=== PATIENT | male | born 1960 | race Caucasian/White ===

== ENCOUNTER → 2017-05-15 | Outpatient (CLI) | payer OTHER ==
[~2017-05-15] MED LIST: AMLODIPINE BESY1 TAB PO; DICLOFENAC SOD75 MG PO; FLEXERIL10 MG PO; GLUCOPHAGE1000 MG PO; LIPITOR10 MG PO; MOTRIN600 MG PO; OMEPRAZOLE40 MG PO; VICODIN 5/500 505 MG PO; VITAMIN D5000 UNI1 PO
[2017-05-15 11:52] LABS: HEMOGLOBIN A1c 7.4 % (4.8-5.6)
[2017-05-15 12:12] LABS: ALBUMIN 3.4 gm/dl (3.1-4.5); ALKALINE PHOSPHATASE 94 U/L (45-117); BILIRUBIN, TOTAL 0.6 mg/dl (0.2-1.0); BUN 8 mg/dl (7-24); CARBON DIOXIDE 29 mmol/L (21-32); CHLORIDE 100 mmol/L (98-107); CHOLESTEROL 164 mg/dL (<200); CPK 73 U/L (39-308); EST GLOM FILT AFRICAN AMERICAN > 60 ml/min; GLUCOSE 163 mg/dL (65-99); HDL CHOLESTEROL 31 mg/dl (40-60); LDL CHOLESTEROL 87 mg/dL (9-159); POTASSIUM 4.3 mmol/L (3.5-5.1); SGOT/AST 14 IU/L (3-35); SGPT/ALT 25 U/L (12-78); SODIUM 137 mmol/L (136-145); TOTAL PROTEIN 7.9 gm/dL (6.4-8.2); TRIGLYCERIDES 229 mg/dl (<150); VLDL CHOLESTEROL 46 mg/dL (6-40)
[2017-05-16 08:12] LABS: RHEUMATOID ARTHRITIS FACTOR <10.0 IU/mL (0.0-13.9)
[2017-05-16 15:10] LABS: LYME AB/TOTAL IMMUNOGLOBULINS <0.91 ISR (0.00-0.90)
== END | disposition home or self-care (01) ==
LOC: LAB 10:38
PROVIDERS: Family Medicine
DX: Z12.5 Encounter for screening for malignant neoplasm of prostate (principal); I25.10 Atherosclerotic heart disease of native coronary artery without angina pectoris; E11.9 Type 2 diabetes mellitus without complications; E55.9 Vitamin D deficiency, unspecified; M79.1 Myalgia; M54.9 Dorsalgia, unspecified; E78.2 Mixed hyperlipidemia; M19.90 Unspecified osteoarthritis, unspecified site

== ENCOUNTER → 2017-08-15 | Outpatient (CLI) | payer OTHER ==
[2017-08-15 11:56] LABS: HEMATOCRIT 45.6 % (42.0-52.0); MEAN CELL VOLUME 95.6 fl (80.0-94.0); MEAN CORPUSCULAR HGB 31.4 pg (27.0-31.0); MEAN CORPUSCULAR HGB CONC 32.9 g/dl (33.0-37.0); MEAN PLATELET VOLUME 9.1 fl (9.6-12.3); RED BLOOD COUNT 4.77 10*6/uL (4.50-5.90); RED CELL DISTRI WIDTH 13.5 % (0-14.5); WHITE BLOOD COUNT 12.6 10*3/uL (4.8-10.8)
[2017-08-15 12:24] LABS: ALBUMIN 3.5 gm/dl (3.1-4.5); ALKALINE PHOSPHATASE 103 U/L (45-117); BUN 11 mg/dl (7-24); CHLORIDE 101 mmol/L (98-107); CHOLESTEROL 173 mg/dL (<200); CPK 84 U/L (39-308); CREATININE 0.92 mg/dL (0.70-1.30); HDL CHOLESTEROL 31 mg/dl (40-60); LDL CHOLESTEROL 78 mg/dL (9-159); POTASSIUM 4.9 mmol/L (3.5-5.1); SGOT/AST 13 IU/L (3-35); SGPT/ALT 23 U/L (12-78); SODIUM 137 mmol/L (136-145); TOTAL PROTEIN 8.2 gm/dL (6.4-8.2); TRIGLYCERIDES 318 mg/dl (<150); VLDL CHOLESTEROL 64 mg/dL (6-40)
== END | disposition home or self-care (01) ==
LOC: LAB 11:42
PROVIDERS: Family Medicine
DX: E78.00 Pure hypercholesterolemia, unspecified (principal); I10 Essential (primary) hypertension; I25.10 Atherosclerotic heart disease of native coronary artery without angina pectoris; E11.9 Type 2 diabetes mellitus without complications

== ENCOUNTER → 2017-11-16 | Outpatient (CLI) | payer OTHER | END | disposition home or self-care (01) | LOC: RAD 10:11 | DX: E11.9 Type 2 diabetes mellitus without complications (principal); I10 Essential (primary) hypertension; R06.02 Shortness of breath; R05 Cough; R09.89 Other specified symptoms and signs involving the circulatory and respiratory systems; Z87.891 Personal history of nicotine dependence ==

== ENCOUNTER → 2018-04-11 | Outpatient (CLI) | payer OTHER ==
[2018-04-11 17:27] LABS: ALBUMIN 3.6 gm/dl (3.1-4.5); ALKALINE PHOSPHATASE 97 U/L (45-117); BUN 11 mg/dl (7-24); CHLORIDE 102 mmol/L (98-107); CHOLESTEROL 153 mg/dL (<200); CPK 97 U/L (39-308); CREATININE 0.89 mg/dL (0.70-1.30); HDL CHOLESTEROL 30 mg/dl (40-60); LDL CHOLESTEROL 76 mg/dL (9-159); POTASSIUM 4.2 mmol/L (3.5-5.1); SGOT/AST 9 IU/L (3-35); SGPT/ALT 24 U/L (12-78); SODIUM 138 mmol/L (136-145); TOTAL PROTEIN 8.2 gm/dL (6.4-8.2); TRIGLYCERIDES 236 mg/dl (<150); VLDL CHOLESTEROL 47 mg/dL (6-40)
== END | disposition home or self-care (01) ==
LOC: LAB 15:22
PROVIDERS: Family Medicine
DX: Z12.5 Encounter for screening for malignant neoplasm of prostate (principal); E78.00 Pure hypercholesterolemia, unspecified; I10 Essential (primary) hypertension; E11.9 Type 2 diabetes mellitus without complications

== ENCOUNTER 2018-10-25 18:17 | Inpatient (IN) | payer MEDICARE, MEDICAID ==
[~2018-10-25] VITALS: Ht 175.3 cm; Wt 114.0 kg
--- NOTE | ~2018-10-25 | PR ---
[place], [place] PROGRESS NOTE NAME: VU CONCEPCION UNIT #: [id number] ROOM: 517 DOCTOR: DESTINY VALLEJO MD,MARKY BIRTHDATE: [birth year] DOS: 10/31/2018 SUBJECTIVE: The patient noted comfortable at this time, resting on the bed without any acute distress. He has no reported symptoms of chest pain. Ambulating with the use of oxygen, was assessed yesterday requiring 4 liters of oxygen supplementation, continue use with sitting and ambulation. OBJECTIVE: VITAL SIGNS: Normal temperature, respiratory rate 20, heart rate 86, blood pressure 151/84. The pulse oxygen saturation on 4 liters nasal cannula 94% saturation. HEENT: Chronic moderate obesity. NECK: Supple. CARDIOVASCULAR: S1, S2 audible. LUNGS: The patient was noted without any wheeze or crackles, [id number] diminished breath sounds bilaterally. ABDOMEN: Soft, nontender. EXTREMITIES: Chronic obesity. IMPRESSION: The patient with resolving acute on chronic severe hypercapnic and hypoxic respiratory failure, exacerbation of chronic obstructive pulmonary disease. PLAN OF TREATMENT: No changes in the plan would be recommended, except discharge in the home setting with use of oxygen, bronchodilator, tapering prednisone and other medications. Outpatient assessment for the comprehensive assessment of COPD, respiratory failure and suspected obstructive sleep apnea disorder. MARKY DIXON MD CM:PNTRANS [id number] MARKY VALLEJO MD 10/31/18 1600 interface
--- NOTE | ~2018-10-25 | CON ---
[place], [place] REPORT OF CONSULTATION NAME: VU CONCEPCION UNIT #: [id number] ROOM: [facility] DOCTOR: MARKY RUSSELL MD BIRTHDATE: [birth year] DOS: 10/27/2018 PULMONARY CONSULTATION, EVALUATION, AND MANAGEMENT CONSULTATION REQUESTED BY: Hospitalist services. REASON FOR CONSULTATION: For assessment of current respiratory failure. HISTORY OF PRESENT ILLNESS: This is a 58-year-old white male admitted to the hospital by hospitalist service on the date of 10/25/2018. The patient's primary care attending is Dr. Joel Begum. He has been assessed in the Emergency Room and the patient presented to the Emergency Room with ongoing symptoms of shortness of breath for 3 days. He has been noted with increased coughing with sputum expectoration described greenish in color, intermittently as well. The symptoms of shortness breath regarding significantly worse as well. He has been reported with symptoms of wheezing. The patient denies any symptoms of chest pain or hemoptysis. The history of patient is noted somewhat limited because of current use of the BiPAP. The patient noted increased lethargy. The patient was sleeping, which has been noted this morning. Arterial blood gas was completed. I was asked for consultation. The patient has been started BiPAP and noted with gradual improvement and wakefulness in the last 3 hours with the use of the BiPAP setting of 18/10. REVIEW OF SYSTEMS: CONSTITUTIONAL SYMPTOMS: Fatigue and tiredness noted with subjective symptoms of fever. The patient had chills described by the patient. EYES: Denied any burning, redness, or tenderness. EARS, NOSE, THROAT SYMPTOMS: Denies sore throat, hoarseness, otalgia, postnasal drainage or epistaxis. CARDIOVASCULAR: Denies any anginal pain, edema, or pain in lower extremity. GASTROINTESTINAL: Denies dysphagia, nausea, vomiting, diarrhea, abdominal pain, hematemesis, melena, or hematochezia. GENITOURINARY: No dysuria, suprapubic pain, or hematuria. MUSCULOSKELETAL: No acute joint pain, redness, or tenderness. SKIN: Denies lesions or rashes. CENTRAL NERVOUS SYSTEM: No dizziness, headache, diplopia or syncopal episode. Remaining systems were reviewed, they were noted all negative. PAST MEDICAL HISTORY: 1. Coronary artery disease. 2. Chronic heavy nicotine dependence. There was no formal diagnosis of COPD or pulmonary diseases have been reported prior to the current hospitalization. 3. History of hypercholesterolemia. 4. History of type 2 diabetes mellitus. 5. History of gastroesophageal reflux. PAST SURGICAL HISTORY: Noted as cardiac catheterization. SOCIAL HISTORY: The patient is and lives at home. He has been noted [place], [place] REPORT OF CONSULTATION NAME: VU CONCEPCION UNIT #: [id number] ROOM: [facility] DOCTOR: MARKY RUSSELL MD BIRTHDATE: [birth year] tobacco use, a pack of cigarettes per day, active use for 40 years or more. FAMILY HISTORY: Both parents from complication related to myocardial infarction. HOME MEDICATIONS: Listed use of aspirin, atorvastatin, vitamin D, Plavix, glipizide, metformin, metoprolol succinate, omeprazole and Protonix. DRUG ALLERGIES: The patient noted without any known drug allergies. PHYSICAL EXAMINATION: GENERAL: This is a 58-year-old white male currently noted BiPAP patient. Follows vocal commands, opening his eyes appropriately. Answering questions. Height of 5 feet 9 inches, weight of 242 pounds, BMI 35.7. VITAL SIGNS: Normal temperature to 99.6 degree Fahrenheit, respiratory rate 22-30, heart rate of 121-103 with sinus tachycardia, blood pressure 120/70-122/68. The pulse oxygen saturation recorded as 85% on room air on 5-liter nasal cannula, 93% with the BiPAP 50% oxygen, 95% saturation. HEENT: Head was atraumatic. Eyes nonicterus. NECK: Supple. CARDIOVASCULAR: S1, S2 is audible. LUNGS: The patient noted to have diffuse expiratory wheezing with decreased breath sounds bilaterally. ABDOMEN: Soft, nontender, bowel sounds present. EXTREMITIES: The patient was noted without acute edema. MUSCULOSKELETAL: Noted without any acute deformities. SKIN: No visible skin lesions or rashes. CENTRAL NERVOUS SYSTEM: Cranial nerves 2-12 intact. LABORATORY DATA: CBC on admission 10/25/2018, WBC count 14.6. Hemoglobin, hematocrit and platelet count were normal. CBC that was done yesterday, WBC count as 16.3, hemoglobin remains normal. Platelet count remains normal. CBC of this morning: WBC count was recorded at 15.3, hemoglobin 12.7, platelet count remains normal. The CMP on 10/25/2018, normal BUN and creatinine, CO2 33. CMP that was done this morning, glucose 283, BUN and creatinine was normal, CO2 of 33. Sputum Gram stain of yesterday, moderate white blood cell, few gram-positive cocci in pairs, normal florin. Preliminary chest x-ray that was done this morning was noted without any acute pulmonary infiltration, mild pulmonary venous congestion marking was noted. Influenza A and B, nasal washing antigen negative on admission. CT of the chest that was done 10/25/2018, does not show any evidence of pulmonary embolism. The patient was noted with mild lymphadenopathy in the subcarinal area with a short dimension side 1.2 cm as well. There was no pulmonary infiltration. The arterial blood gas on 8-liter nasal cannula 10/27/2018, pH of 7.14, pCO2 94, pO2 of 82. Arterial blood gas with BiPAP setting of 18/10. After 3 hours, pH of 7.22, pCO2 of 78, pO2 70.3. IMPRESSION: 1. The patient who has been currently noted with acute hypercapnic and hypoxic respiratory failure secondary to new onset of chronic obstructive pulmonary disease with acute bronchitis, leukocytosis, acute bacterial bronchitis. [place], [place] REPORT OF CONSULTATION NAME: VU CONCEPCION UNIT #: [id number] ROOM: [facility] DOCTOR: DESTINY VALLEJO MD,[facility] BIRTHDATE: [birth year] 2. Type 2 diabetes mellitus, uncontrolled hyperglycemia. 3. Change in mental status secondary to hypercarbia seem to be gradually improving. 4. Chronic nicotine abuse. 5. Nonspecific lymphadenopathy in the mediastinum and subcarinal area at this time will be further monitored, may be related to chronic obstructive pulmonary disease and tobacco use. 6. Metabolic alkalosis secondary to chronic hypercarbia is very likely. PLAN OF MANAGEMENT: The patient will continue current use of BiPAP. He has been showing improvement in ventilation with current use of the BiPAP as well as mental status. Corticosteroids to continue to manage hyperglycemia, sliding insulin coverage. Continue use of the bronchodilator. DVT prophylaxis. Monitor cultures of the sputum. No change in antibiotics. Further change in treatment will be done based on the progression of the illness. Nicotine replacement patch to overcome nicotine withdrawal as well. Other additional treatment changes will be made based on progression of the illness. Thanks for allowing me to participate in the care of this patient. MARKY DIXON MD CM:CONSTR:REPORT OF CONSULTATION 1743 10/28/18 0549 interface
--- NOTE | ~2018-10-25 | PR ---
[place], [place] PROGRESS NOTE [id number] UNIT #: [id number] ROOM: [facility] DOCTOR: DESTINY VALLEJO MD,MARKY BIRTHDATE: [birth year] DOS: 10/28/2018 SUBJECTIVE: The patient was noted comfortable at this time, sitting on the chair this morning of assessment. He has shown continued further improvement in the respiratory status use the BiPAP most of the time as ordered. He has not been noted with symptoms of chest pain. The oxygen supplementation decreased currently 6 liter high flow nasal cannula use of oxygen. The patient noted awake and alert, cooperative in examination, fully awake, alert, and oriented. Family members were present in the room. The edema of the lower extremity noted mild at this time. The patient given one dose of IV Lasix ordered by the primary care attending this morning. The patient denies symptoms of nausea, vomiting, diarrhea, abdominal pain, hematemesis, melena, or hematochezia. Remaining systems were reviewed. They were noted all negative. OBJECTIVE: VITAL SIGNS: Normal temperature, respiratory rate of 18, heart rate 78, blood pressure 118/72-116/74. Intake for the patient of 1690, fluid balance -385 mL. Pulse oxygen saturation on the 60s high flow nasal cannula 90% saturation recorded. HEENT: Head was atraumatic. Moderate obesity. NECK: Supple. CARDIOVASCULAR: S1, S2 audible. LUNGS: Crackles noted in the lung bases, scattered wheezing. ABDOMEN: Soft and nontender. Moderate obesity, bowel sounds present. EXTREMITIES: Trace edema. MUSCULOSKELETAL: Without any acute deformities. CENTRAL NERVOUS SYSTEM: Cranial nerves 2-12 intact. VISIBLE SKIN: No lesions or rashes. LABORATORY DATA: The patient's CBC today: WBC count 17.1, hemoglobin 11.9, hematocrit 39.7 with normal platelet count. The culture of the sputum final normal florin. Blood culture, no bacterial growth on 10/25/2018. BMP of this morning, glucose 219. Normal BUN and creatinine, CO2 37. Arterial blood gas this morning, pH of 7.36, pCO2 of 57, pO2 of 71 on 8 liters high flow nasal cannula of oxygen use. IMPRESSION: 1. The patient has been currently noted with significant improvement, resolution of acute hypercapnic hypoxic respiratory failure. 2. Acute exacerbation of chronic obstructive pulmonary disease. 3. Possibility of some superimposed congestive heart failure would be considered. 4. Type 2 diabetes mellitus, uncontrolled hyperglycemia. 5. Improving mental status with improvement in hypercarbia, chronic metabolic alkalosis as well. Nonspecific mediastinal lymphadenopathy of unknown significance. History of chronic heavy nicotine abuse. PLAN OF TREATMENT: Continue nicotine replacement patches, bronchodilators, oxygen supplementation, diuretic therapy for the patient as tolerated. Decrease [place], [place] PROGRESS NOTE NAME: VU CONCEPCION UNIT #: [id number] ROOM: [facility] DOCTOR: MARKY RUSSELL MD BIRTHDATE: [birth year] the Solu-Medrol dose to 60 mg q.8h., 60 mg b.i.d. dosing at this time. Use of the BiPAP intermittent during the day for this patient 2 hours on and 2 hours off and continuous at nighttime. Repeat another chest x-ray in the morning. Monitoring and management of hyperglycemia. Other supportive therapy, plan of management care for the patient to be continued based on progression of the illness. DVT prophylaxis. Other supportive plan of management and care and therapies. Assessment and management has been discussed with the patient and family members of the patient in detail in the room. Past family, social, surgical history, all of the others review from yesterday and remains unchanged. MARKY DIXON MD CM:PNTRANS [id number] MARKY VALLEJO MD 06/06/19 0849 interface
--- NOTE | ~2018-10-25 | PR ---
[place], [place] PROGRESS NOTE NAME: VU CONCEPCION UNIT #: [id number] ROOM: 517 DOCTOR: MARKY RUSSELL MD BIRTHDATE: [birth year] DOS: 10/30/2018 SUBJECTIVE: The patient has been noted comfortable, continued to show reduction and improvement in the respiratory complaints. He has ambulated in his room as well reduction in shortness of breath. No symptoms of chest pain. The patient denies symptoms of fever or chills. Denies symptoms of hemoptysis. Shortness of breath, the other symptoms the patient have been slowly subsiding. Currently using oxygen supplementation 4 liters nasal cannula this morning of assessment. OBJECTIVE: VITAL SIGNS: Normal temperature, respiratory rate 20, heart rate of 98, blood pressure 150/79. Pulse oxygen saturation on BiPAP 92% on 4 liters, 92% saturation at rest. HEENT: Showed no new change. NECK: Supple. CARDIOVASCULAR: S1, S2 audible. LUNGS: Noted with moderate decreased breaths in the lungs bilaterally. There were no crackles. ABDOMEN: Soft, nontender. EXTREMITIES: Shows resolving edema of the lower extremities. LABORATORY DATA: Chest x-ray yesterday was noted without any acute pulmonary infiltration. Urine legionella antigen negative. IMPRESSION: Progressive and gradual improvement noted in the acute hypercapnic hypoxic respiratory failure with exacerbation of chronic obstructive, stable metabolic alkalosis. PLAN OF MANAGEMENT: Ambulation with the need of oxygen. Continue corticosteroids, bronchodilators. It depends on the requirement of the oxygen supplementation and decision about discharge could be made. Continue in the meantime with the plan of therapy, patient care plan of treatment and therapies. [place], [place] PROGRESS NOTE NAME: VU CONCEPCION UNIT #: [id number] ROOM: 517 DOCTOR: MARKY RUSSELL MD BIRTHDATE: [birth year] MARKY DIXON MD CM:PNTRANS [id number] MARKY VALLEJO MD 06/06/19 0828 interface
--- NOTE | ~2018-10-25 | EKG ---
[place], [place] ELECTROCARDIOGRAM REPORT NAME: VU CONCEPCION UNIT #: [id number] ROOM: [facility] DOCTOR: TEODORO DRAFT REPORT BIRTHDATE: [birth year] [facility] Test Date: 2018-10-25 Test Time: 19:03:27 Pat Name: VU CONCEPCION Department: Room: [facility] Gender: M Percussion Instrument Tuner: Jacinta Martinez : 1960 Requested By: JAMESON CHI Order Number: [id number] Reading MD: Mary Lou Pizarro MD Measurements Intervals [place] Rate: 113 P: 60 VA: 154 QRS: 80 QRSD: 82 T: 59 QT: 305 QTc: 419 Interpretive Statements Sinus tachycardia Low voltage, extremity leads Electronically Signed On 10-26-2018 10:50:27 PST by Mary Lou Pizarro MD CM:EKGRPT:ELECTROCARDIOGRAM REPORT 1050 JAMESON REECE DRAFT REPORT JAMESON CHI DO
--- NOTE | ~2018-10-25 | PR ---
[place], [place] PROGRESS NOTE NAME: VU CONCEPCION UNIT #: [id number] ROOM: [facility] DOCTOR: DSETINY VALLEJO MD,MARKY BIRTHDATE: [birth year] DOS: 10/29/2018 SUBJECTIVE: The patient was noted comfortable at this time, resting on the bed without any acute distress this morning. The patient has been transferred to telemetry floor. He had not ambulating for the patient outside the room, but does ambulate in his room. Shortness of breath symptoms have been gradually subsiding. There were no symptoms of chest pain, fever or chills. OBJECTIVE: VITAL SIGNS: Normal temperature, respiratory rate 20, heart rate 83, and blood pressure 130/74. Pulse oxygen saturation recorded as 94% on 7 liters nasal cannula. HEENT: Head was atraumatic. Eyes nonicterus. NECK: Supple. CARDIOVASCULAR: S1, S2 is audible. LUNGS: The patient was noted with moderate reduction of the breath sounds bilaterally. There were no crackles, rhonchi or wheezing. ABDOMEN: Soft and nontender. Bowel sounds present. EXTREMITIES: Shows minimal edema. LABORATORY DATA: The patient's CBC this morning, WBC count 13.0, hemoglobin 12.2, and platelet count was normal. CMP this morning, normal BUN and creatinine. Glucose is elevated as 247. The CO2 patient was noted as 39. The chest x-ray two-view, which was done this morning reviewed from the PACS images does not show any acute cardiopulmonary disease including congestive heart failure, hyperinflation changes of chronic obstructive pulmonary disease were present. IMPRESSION: 1. The patient with gradual resolution of the severe acute hypercapnic hypoxic respiratory failure, still requiring significant amount of oxygen. 2. Hyperglycemia related to corticosteroids. 3. Chronic obesity as well. PLAN OF MANAGEMENT: Decrease the Solu-Medrol further to 40 mg b.i.d. dosing. Ambulation of the patient would be encouraged with the use of the portable oxygen to assess his oral improvement in the debility to help with the discharge planning. Continue use of the BiPAP as well. Other additional treatment changes continue to be made based on progression of the illness. Supportive care, other therapy, plan of management and care plan. [place], [place] PROGRESS NOTE NAME: VU CONCEPCION UNIT #: [id number] ROOM: [facility] DOCTOR: MARKY RUSSELL MD BIRTHDATE: [birth year] MARKY DIXON MD CM:PNTRANS 1529 MARKY VALLEJO MD 10/29/18 1757 interface
[2018-10-25 18:36] VITALS: BP 140/83
--- NOTE | 2018-10-25 19:07 | NUR ---
NURSE TO NURSE REPORT GIVEN TO THIS RN.
[2018-10-25 19:09] LABS: BASO # 0.1 10*3/uL (0.0-0.1); BASO % 0.3 % (0.0-1.0); EOS # 0.4 10*3/uL (0.0-0.4); EOS % 2.7 % (1.0-4.0); HEMOGLOBIN 14.5 g/dl (14.0-18.0); LYMPH # 1.2 10*3/uL (1.3-4.4); LYMPH % 8.2 % (27.0-41.0); MEAN CELL VOLUME 97.2 fl (80.0-94.0); MEAN CORPUSCULAR HGB 31.3 pg (27.0-31.0); MEAN CORPUSCULAR HGB CONC 32.2 g/dl (33.0-37.0); MEAN PLATELET VOLUME 9.4 fl (9.6-12.3); MONO % 6.5 % (3.0-9.0); NEUT # 11.9 10*3/uL (2.3-7.9); NEUT % 81.9 % (47.0-73.0); PLATELET COUNT AUTOMATED 207 10*3/uL (130-400); RED BLOOD COUNT 4.63 10*6/uL (4.50-5.90); RED CELL DISTRI WIDTH 14.5 % (0-14.5); WHITE BLOOD COUNT 14.6 10*3/uL (4.8-10.8)
[2018-10-25 19:20] LABS: ACT PARTIAL THROMBO TIME 24.8 SECONDS (20.8-31.5); INTERNATIONAL NORM RATIO 0.9 (2.0-3.5)
[2018-10-25] MEDS ORDERED: PANTOPRAZOLE SO40 MG PO (19:21)
[2018-10-25] MEDS ORDERED: METOPROLOL SUCC50 M1 PO (19:21)
[2018-10-25] MEDS ORDERED: GLIPIZIDE10 M1 PO (19:22)
[2018-10-25] MEDS ORDERED: CLOPIDOGREL75 MG PO (19:22)
[2018-10-25 19:23] VITALS: BP 149/91
[2018-10-25 19:24] LABS: ALBUMIN 3.6 gm/dl (3.1-4.5); ALKALINE PHOSPHATASE 104 U/L (45-117); BUN 14 mg/dl (7-24); CHLORIDE 98 mmol/L (98-107); CREATININE 0.99 mg/dL (0.70-1.30); LIPASE 210 U/L (73-393); POTASSIUM 4.4 mmol/L (3.5-5.1); SGOT/AST 25 IU/L (3-35); SGPT/ALT 36 U/L (12-78); SODIUM 138 mmol/L (136-145)
[2018-10-25 19:27] LABS: TROPONIN I < 0.015 ng/ml (<0.045)
--- NOTE | 2018-10-25 19:55 | NUR ---
NURSE TO NURSE REPORT GIVEN TO RN LUCIEN IN [facility]U.
[2018-10-25 20:00] VITALS: BP 139/70
--- NOTE | 2018-10-25 20:00 | NUR ---
A 58, admitted to ICCU, under the services of CALEB Aguiar DO with a diagnosis of SEPSIS, ACUTE RESP. FAILURE, PNEUMONITIS. Chief complaint is SHORTNESS OF BREATH AND RIGHT RIB STABBING PAIN. Patient arrived via stretcher from ER. Monitor applied. Initial assessment completed. Vital signs taken and recorded. CALEB AGUIAR DO notified of admission to the unit. Orders received. See assessment for past medical history, medications and allergies. Patient and/or family oriented to unit. [facility] visitation policy reviewed. Clothing/patient valuable form completed. LUCIEN CORRAL
[2018-10-25] MEDS ORDERED: ASPIRIN CHEWABL81 MG PO (20:31)
[2018-10-25 20:41] LABS: ABG BASE EXCESS 2.5 mmol/L (-2.0-2.0); ABG HCO3 30.4 mmol/l (22-26); ABG O2 SATURATION 95.1 % (95-97); ARTERIAL BLOOD GAS PCO2 63.7 mmHg (35-45); ARTERIAL BLOOD GAS PH 7.299 (7.35-7.45); ARTERIAL BLOOD GAS PO2 76.8 mmHg (80-90)
--- NOTE | 2018-10-25 22:05 | NUR ---
DR. MCALLISTER NOTIFIED OF CTA RESULTS, NO FURTHER ORDERS.
--- NOTE | 2018-10-25 22:21 | NUR ---
PT. GIVEN MORPHINE AT 2201 FOR COMPLAINTS OF RIGHT RIB PAIN, PT. STATED MORPHINE EFFECTIVE FOR PAIN, SLEEPING INTERMITTENTLY.
--- NOTE | 2018-10-25 22:21 | NUR ---
DR. MEADOWS NOTIFIED OF DR. DIXON OUT OF TOWN UNTIL AM. WILL CALL IN AM FOR CONSULT. LUCIEN CORRAL RN
[2018-10-26] VITALS (9 sets, daily range): BP systolic 83–122; BP diastolic 36–76
--- NOTE | 2018-10-26 03:16 | NUR ---
PT ACCIDENTALLY PULLED OUT IV IN RH, BRIGHT RED BLOOD EVERYWHERE. BED LINEN CHANGED, FLOOR CLEANED AND PT'S GOWN CHANGED. LUCIEN CORRAL RN
--- NOTE | 2018-10-26 04:58 | NUR ---
PT. GIVEN NORCO AT 0449 ORDERED FOR COMPLAINTS OF ARTHRITIC PAIN AND RIGHT RIB PAIN WITH COUGH. LUCIEN CORRAL RN
[2018-10-26 05:13] LABS: HEMATOCRIT 42.2 % (42.0-52.0); HEMOGLOBIN 13.3 g/dl (14.0-18.0); MEAN CELL VOLUME 99.1 fl (80.0-94.0); MEAN CORPUSCULAR HGB 31.2 pg (27.0-31.0); MEAN CORPUSCULAR HGB CONC 31.5 g/dl (33.0-37.0); MEAN PLATELET VOLUME 9.5 fl (9.6-12.3); PLATELET COUNT AUTOMATED 189 10*3/uL (130-400); RED BLOOD COUNT 4.26 10*6/uL (4.50-5.90); RED CELL DISTRI WIDTH 14.5 % (0-14.5); WHITE BLOOD COUNT 16.3 10*3/uL (4.8-10.8)
[2018-10-26 05:35] LABS: PLATELET SUFFICIENCY NORMAL (NORMAL); POLYCHROMASIA SLIGHT; TOTAL CELLS COUNTED 100 #CELLS
[2018-10-26 05:42] LABS: BUN 15 mg/dl (7-24); CHLORIDE 104 mmol/L (98-107); CHOLESTEROL 135 mg/dL (<200); PHOSPHOROUS 2.8 mg/dL (2.5-4.9); SGOT/AST 46 IU/L (3-35); SGPT/ALT 52 U/L (12-78); SODIUM 141 mmol/L (136-145); TRIGLYCERIDES 93 mg/dl (<150); VLDL CHOLESTEROL 19 mg/dL (6-40)
[2018-10-26 05:49] LABS: ALKALINE PHOSPHATASE 89 U/L (45-117); FREE T4 0.92 ng/dl (0.76-1.46); HDL CHOLESTEROL 36 mg/dl (40-60); LDL CHOLESTEROL 80 mg/dL (9-159); THYROID STIM HORMONE (HS) 0.681 uIU/ml (0.358-4.75); TOTAL PROTEIN 7.2 gm/dL (6.4-8.2)
[2018-10-26 05:54] LABS: POTASSIUM 5.5 mmol/L (3.5-5.1)
[2018-10-26 06:28] LABS: ACT PARTIAL THROMBO TIME 28.2 SECONDS (20.8-31.5)
--- NOTE | 2018-10-26 06:38 | NUR ---
DR. DIXON NOTIFIED OF CONSULT.
--- NOTE | 2018-10-26 07:38 | NUR ---
pt was instructed on flutter. pt tolerated well, pt can do on his own
[2018-10-26 07:59] LABS: VITAMIN D, 25-HYDROXY 13.5 ng/mL (30-100)
--- NOTE | 2018-10-26 08:37 | NUR ---
DR GENARO CHI IN [facility] AND MADE AWARE OF PT'S HYPOTENSION AND THAT I HELD TOPROL THIS AM.
--- NOTE | 2018-10-26 09:40 | NUR ---
PT MEDICATED WITH NORCO AT HIS REQUEST FOR C/O RIB CAGE AREA PAIN WITH COUGHING.
--- NOTE | 2018-10-26 11:50 | NUR ---
Research Compliance Specialist in to talk to patient. Patient states lives at HOME with . There are SOME steps in the home. Physician: STEVIE Pharmacy: [facility] Home health services: NONE Patient's level of ADLs: INDEPENDENT Patient has working utilities: YES DME: NONE Follow-up physician's appointment after d/c: WILL BE MADE BY HOSPITALIST NURSE DIRECTOR ON DISCHARGE Does patient want to access PORTAL?: NO Discharge plan PT STATES HE LIVES AT HOME AND IS INDEPENDENT IN CARE. STATES HE HAS NO NEEDS AT HOME AT THIS TIME. CAN BE DISCHARGED TO HOME WHEN MEDICALLY STABLE. WILL CONTINUE TO FOLLOW.. ALEC GUSTAFSON
--- NOTE | 2018-10-26 20:04 | NUR ---
PT. RESTING IN BED, SLEEPING INTERMITTENTLY. LUNGS HAVE I&E WHEEZES BILAT, PULSE OX 91% ON 6L NC. ABDOMEN SOFTLY DISTENDED AND NORMO. NO PERIPHERAL EDEMA NOTED. KNEE HIGH IESHA HOSE BILAT. PT. DENIES PAIN OR DISCOMFORT AT PRESENT, NORCO GIVEN PRIOR TO SHIFT EFFECTIVE FOR RIGHT RIB PAIN. LUCIEN CORRAL RN
[2018-10-27] VITALS: BP 118/58
--- NOTE | 2018-10-27 00:18 | NUR ---
NORCO GIVEN GIVEN AT 2119 ORDERED FOR COMPLAINTS OF RIGHT RIB PAIN. PT. SLEEPING INTERMITTENTLY, NORCO EFFECTIVE.
--- NOTE | 2018-10-27 03:17 | NUR ---
pt. given norco and restoril as ordered for complaints of inability to sleep and rib pain. tigre sr rn
--- NOTE | 2018-10-27 03:57 | NUR ---
PT. SLEEPING, NORCO AND RESTORIL EFFECTIVE. LUCINE CORRAL RN
[2018-10-27 04:00] VITALS: BP 112/54
[2018-10-27 05:16] LABS: ALBUMIN 2.9 gm/dl (3.1-4.5); BUN 18 mg/dl (7-24); CHLORIDE 106 mmol/L (98-107); CREATININE 0.86 mg/dL (0.70-1.30); PHOSPHOROUS 3.4 mg/dL (2.5-4.9); SGOT/AST 35 IU/L (3-35); SGPT/ALT 63 U/L (12-78); SODIUM 142 mmol/L (136-145)
[2018-10-27 05:18] LABS: ALKALINE PHOSPHATASE 88 U/L (45-117)
[2018-10-27 05:19] LABS: POTASSIUM 4.4 mmol/L (3.5-5.1)
[2018-10-27 06:23] LABS: BASO % 0.1 % (0.0-1.0); HEMATOCRIT 41.1 % (42.0-52.0); HEMOGLOBIN 12.7 g/dl (14.0-18.0); LYMPH # 0.8 10*3/uL (1.3-4.4); MEAN CORPUSCULAR HGB 32.2 pg (27.0-31.0); MEAN CORPUSCULAR HGB CONC 30.9 g/dl (33.0-37.0); MONO # 0.6 10*3/uL (0.1-1.0); MONO % 4.1 % (3.0-9.0); NEUT # 13.7 10*3/uL (2.3-7.9); NEUT % 89.7 % (47.0-73.0); PLATELET COUNT AUTOMATED 215 10*3/uL (130-400); RED BLOOD COUNT 3.95 10*6/uL (4.50-5.90); RED CELL DISTRI WIDTH 14.6 % (0-14.5); WHITE BLOOD COUNT 15.3 10*3/uL (4.8-10.8)
[2018-10-27 06:31] LABS: MEAN CELL VOLUME 104.1 fl (80.0-94.0)
[2018-10-27 08:00] VITALS: BP 124/80
--- NOTE | 2018-10-27 09:00 | NUR ---
MEDICATED PT PER PRN ORDER WITH NORCO FOR C/O RIGHT RIB PAIN THAT RATES 6/10 ON PAIN SCALE.
--- NOTE | 2018-10-27 09:30 | NUR ---
DR DOWNING IN TO SEE PT. UPDATED HIM ON PT'S CONDITION. NEW ORDERS RECEIVED.
[2018-10-27 09:45] LABS: ABG BASE EXCESS -0.2 mmol/L (-2.0-2.0); ABG HCO3 31.6 mmol/l (22-26); ABG O2 SATURATION 95.3 % (95-97); ARTERIAL BLOOD GAS PO2 82.8 mmHg (80-90)
--- NOTE | 2018-10-27 09:45 | NUR ---
PT STATES SOME RELIEF OF PAIN WITH EARLIER NORCO.
--- NOTE | 2018-10-27 09:47 | NUR ---
Arterial blood gases drawn from left radial after 1 attempt. The procedure was explained to the patient. The Eyal's test was performed with satisfactory results. The artery was palpated. Fmjause-awvbkjxx-uyrijjj prep to site. The specimen was obtained and sent to the lab on ice. Digital pressure applied x 5 minutes. Pressure dressing applied. No bleeding or hematoma. Pulses equal bilaterally. FLOOD
[2018-10-27 09:49] LABS: ARTERIAL BLOOD GAS PCO2 94.2 mmHg (35-45); ARTERIAL BLOOD GAS PH 7.149 (7.35-7.45)
--- NOTE | 2018-10-27 10:11 | NUR ---
DR DIXON UPDATED ON PT'S CONDITION AND LA RESULTS. ORDERS RECEIVED FOR BIPAP AND STAT PCXR. RESP. THERAPY NOTIFIED.
[2018-10-27 12:00] VITALS: BP 102/70
--- NOTE | 2018-10-27 12:00 | NUR ---
DR DIXON IN TO SEE PT. HE ORDERED REPEAT ABG. ABG DRAWN BY RESP. THERAPIST. PT'S AT BEDSIDE. UPDATED HER ON PT'S CONDITION AND PLAN OF CARE.
[2018-10-27 12:18] LABS: ABG BASE EXCESS 2.1 mmol/L (-2.0-2.0); ABG HCO3 31.8 mmol/l (22-26); ABG O2 SATURATION 94.5 % (95-97); ARTERIAL BLOOD GAS PH 7.228 (7.35-7.45); ARTERIAL BLOOD GAS PO2 70.3 mmHg (80-90)
[2018-10-27 12:23] LABS: ARTERIAL BLOOD GAS PCO2 78.3 mmHg (35-45)
--- NOTE | 2018-10-27 12:35 | NUR ---
DR DIXON NOTIFIED OF ABG RESULTS.
--- NOTE | 2018-10-27 13:01 | NUR ---
PT'S [id number] CAME TO NURSES STATION AND ASKED IF THERE WERE ANY PLANS TO LIFE-FLIGHT PT TO [facility]. I INFORMED HER THAT THERE WAS NO PLAN AT THIS TIME. I HEN ASKED HER WHY SHE THOUGH PT NEEDED TO BE LIFE FLIGHTED TI [facility]. SHE STATED BECAUSE HE HAS CHF. I INFORMED HER THAT I WOULD CALL THE RESIDANT TO HAVE HIM SPEAK WITH THEM R/T PT'S CONDITION AND PLAN OF CARE.
--- NOTE | 2018-10-27 14:44 | NUR ---
IV LASIX GIVEN PER ORDER. BIPAP TAKEN OFF FOR A SHORT WHILE TO LET PT EAT LUNCH. POX 94% ON 8L HIGH FLOW NASAL CANULA. FAMILY AT BEDSIDE AND UPDATED ON PLAN OF CARE.
[2018-10-27 16:00] VITALS: BP 126/74
--- NOTE | 2018-10-27 17:46 | NUR ---
DR DIXON CALLED IN WITH ORDERS.
[2018-10-27 20:00] VITALS: BP 110/70
--- NOTE | 2018-10-27 23:14 | NUR ---
PATIENT HAS WORE BIPAP ALL NIGHT OTHER THAN PILLS AND SWITCHING OUT THE MASK BECUASE THE OTHER STYLE WAS UNCOMFORTABLE.
--- NOTE | 2018-10-27 23:31 | NUR ---
PATIENT GIVEN NORCO FOR BACK PAIN 04/08 WILL CONTINUE TO MONITOR
[2018-10-28] VITALS: BP 102/62
[2018-10-28 04:00] VITALS: BP 118/76
[2018-10-28 06:00] LABS: BASO % 0.2 % (0.0-1.0); HEMATOCRIT 39.7 % (42.0-52.0); HEMOGLOBIN 11.9 g/dl (14.0-18.0); LYMPH # 0.9 10*3/uL (1.3-4.4); LYMPH % 5.4 % (27.0-41.0); MEAN CELL VOLUME 103.7 fl (80.0-94.0); MEAN CORPUSCULAR HGB 31.1 pg (27.0-31.0); MONO # 0.7 10*3/uL (0.1-1.0); MONO % 4.2 % (3.0-9.0); NEUT # 15.2 10*3/uL (2.3-7.9); NEUT % 88.9 % (47.0-73.0); NUCLEATED RED BLOOD CELL 0.1 % (0.0-0.0); PLATELET COUNT AUTOMATED 194 10*3/uL (130-400); RED BLOOD COUNT 3.83 10*6/uL (4.50-5.90); RED CELL DISTRI WIDTH 14.5 % (0-14.5); WHITE BLOOD COUNT 17.1 10*3/uL (4.8-10.8)
[2018-10-28 06:06] LABS: BUN 22 mg/dl (7-24); CHLORIDE 100 mmol/L (98-107); CREATININE 0.71 mg/dL (0.70-1.30); SODIUM 140 mmol/L (136-145)
[2018-10-28 08:00] VITALS: BP 116/74
--- NOTE | 2018-10-28 08:29 | NUR ---
Arterial blood gases drawn from right brachial after 4 attempt. The procedure was explained to the patient. The Eyal's test was performed with satisfactory results. The artery was palpated. Kdqgeda-kcevicaz-bdkygwo prep to site. The specimen was obtained and sent to the lab on ice. Digital pressure applied x 5 minutes. Pressure dressing applied. No bleeding or hematoma. Pulses equal bilaterally. TALA HYDE
[2018-10-28 09:01] LABS: ABG BASE EXCESS 5.3 mmol/L (-2.0-2.0); ABG HCO3 32.1 mmol/l (22-26); ABG O2 SATURATION 94.4 % (95-97); ARTERIAL BLOOD GAS PCO2 57.6 mmHg (35-45); ARTERIAL BLOOD GAS PH 7.361 (7.35-7.45); ARTERIAL BLOOD GAS PO2 71.1 mmHg (80-90)
[2018-10-28 12:00] VITALS: BP 118/72
--- NOTE | 2018-10-28 15:00 | NUR ---
Hep Lock discontinued to left arm after tender with infusion & slight redness starting. Pressure applied. Sterile dressing applied. IV started right forearm with #22 protective cath after 1 attempts. Site prepped with Chloroprep. Sterile dressing applied. Patient tolerated procedure well. TALA HYDE
--- NOTE | 2018-10-28 16:07 | NUR ---
PATIENT WANTS TO WAIT FOR TO BATHE UP. BED CHANGED - SITTING UP IN CHAIR ON 6L HIGH FLOW NASAL CANNULA
[2018-10-28 16:09] VITALS: BP 126/66
[2018-10-28 20:00] VITALS: BP 130/72
[2018-10-29] VITALS: BP 113/71; BP 121/62
[2018-10-29 06:41] LABS: BASO % 0.2 % (0.0-1.0); HEMATOCRIT 39.7 % (42.0-52.0); HEMOGLOBIN 12.2 g/dl (14.0-18.0); LYMPH # 1.2 10*3/uL (1.3-4.4); LYMPH % 9.4 % (27.0-41.0); MEAN CELL VOLUME 101.3 fl (80.0-94.0); MEAN CORPUSCULAR HGB 31.1 pg (27.0-31.0); MEAN CORPUSCULAR HGB CONC 30.7 g/dl (33.0-37.0); MEAN PLATELET VOLUME 9.4 fl (9.6-12.3); MONO # 0.7 10*3/uL (0.1-1.0); MONO % 5.3 % (3.0-9.0); NEUT # 10.8 10*3/uL (2.3-7.9); NEUT % 83.6 % (47.0-73.0); PLATELET COUNT AUTOMATED 192 10*3/uL (130-400); RED BLOOD COUNT 3.92 10*6/uL (4.50-5.90); RED CELL DISTRI WIDTH 14.3 % (0-14.5)
[2018-10-29 07:08] LABS: ALBUMIN 2.8 gm/dl (3.1-4.5); ALKALINE PHOSPHATASE 78 U/L (45-117); BUN 24 mg/dl (7-24); CHLORIDE 100 mmol/L (98-107); CREATININE 0.72 mg/dL (0.70-1.30); POTASSIUM 4.3 mmol/L (3.5-5.1); SGOT/AST 23 IU/L (3-35); SGPT/ALT 63 U/L (12-78); SODIUM 142 mmol/L (136-145); TOTAL PROTEIN 6.6 gm/dL (6.4-8.2)
[2018-10-29 08:00] VITALS: BP 130/74
--- NOTE | 2018-10-29 11:57 | NUR ---
PT STATES HE FEELS MUCH BETTER AND WILL GO HOME ON DISCHARGE WITH NO NEW NEEDS.
[2018-10-29 12:00] VITALS: BP 120/70
[2018-10-29 16:00] VITALS: BP 142/79
--- NOTE | 2018-10-29 17:25 | NUR ---
PT MEDICATED WITH PRN NORCO FOR C/O RIB PAIN FROM COUGHING. PT RATES PAIN 06/08. WILL CONTINUE TO MONITOR.
[2018-10-30] VITALS: BP 150/79
--- NOTE | 2018-10-30 01:57 | NUR ---
PATIENT IS SLEEPING IN CHAIR WITH BIPAP CONNECTED. CALL LIGHT IS WITHIN REACH.
--- NOTE | 2018-10-30 11:15 | NUR ---
RN ASSUMED CARE OF THIS PATIENT AT THIS TIME. BEDSIDE REPORT RECIEVED FROM ABELARDO KAMINSKI. PATIENT DENIES ANY NEEDS AT THIS TIME. CALL LIGHT WITHIN REACH. RN WILL CONTINUE TO MONITOR
[2018-10-30 12:00] VITALS: BP 133/71
--- NOTE | 2018-10-30 14:20 | NUR ---
ASSESS FOR HOME OXYGEN: ROOM AIR AT REST: BP 152/73 HR 92 RR 20 SPO2 84% 2L NC AT REST: SPO2 87% HR 96 RR 20 3L NC AT REST: SPO2 88% HR 94 RR 20 4L NC AT REST: SPO2 94% HR 90 RR 18 4L NC WITH AMBULATION: SPO2 92-94% HR 96-110 RR 20 RECOVERY ON 4L NC: SPO2 94% HR 106 RR 20 BP 152/80 RN NOTIFIED WITH RESULTS.
--- NOTE | 2018-10-30 15:17 | NUR ---
DR LYLES CALLED REGARDING PATIENTS HOME O2 EVAL. AND NEED FOR SCRIPTS FOR O2 AND PORTABLES.
[2018-10-30 16:00] VITALS: BP 143/73
[2018-10-30 20:00] VITALS: BP 130/76
[2018-10-31] VITALS: BP 151/84
[2018-10-31 07:03] LABS: HEMATOCRIT 39.7 % (42.0-52.0); HEMOGLOBIN 12.4 g/dl (14.0-18.0); MEAN CELL VOLUME 99.3 fl (80.0-94.0); MEAN CORPUSCULAR HGB CONC 31.2 g/dl (33.0-37.0); MEAN PLATELET VOLUME 9.5 fl (9.6-12.3); PLATELET COUNT AUTOMATED 189 10*3/uL (130-400); WHITE BLOOD COUNT 12.4 10*3/uL (4.8-10.8)
[2018-10-31 07:10] LABS: BUN 19 mg/dl (7-24); CHLORIDE 96 mmol/L (98-107); CREATININE 0.73 mg/dL (0.70-1.30); POTASSIUM 4.4 mmol/L (3.5-5.1); SODIUM 138 mmol/L (136-145)
[2018-10-31 07:48] LABS: TOTAL CELLS COUNTED 100 #CELLS
[2018-10-31 07:56] LABS: PLATELET SUFFICIENCY NORMAL (NORMAL)
[2018-10-31] MEDS ORDERED: MUCINEX ER600 MG PO (09:51)
[2018-10-31] MEDS ORDERED: PREDNISONE10 MG PO (09:51)
[2018-10-31] MEDS ORDERED: ZITHROMAX500 MG PO (09:51)
[2018-10-31] MEDS ORDERED: NICOTINE PATCH1 EAC2 TD (09:59)
[2018-10-31 10:07] VITALS: BP 138/66
--- NOTE | 2018-10-31 12:00 | NUR ---
home o2 delivered and pt discharged. heplock discontinued. follow up care and prescritions discussed.
== END 2018-10-31 12:00 | disposition home or self-care (01) | DRG 871 ==
LOC: ED 18:17 → EDHOLD 18:59 → ICCU 18:59 → 5E 10-28 17:15
PROVIDERS: Emergency Medicine; Internal Medicine; Internal Medicine Critical Care Medicine; Student in an Organized Health Care Education/Training Program; ADMIT Internal Medicine
PROC: 5A09457 Assistance with Respiratory Ventilation, 24-96 Consecutive Hours, Continuous Positive Airway Pressure (ICD-10-PCS; principal; 2018-10-27)
PROC: 5A09357 Assistance with Respiratory Ventilation, Less than 24 Consecutive Hours, Continuous Positive Airway Pressure (ICD-10-PCS; 2018-10-29)
PROC: 5A09357 Assistance with Respiratory Ventilation, Less than 24 Consecutive Hours, Continuous Positive Airway Pressure (ICD-10-PCS; 2018-10-30)
DX: A41.9 Sepsis, unspecified organism (principal); J18.9 Pneumonia, unspecified organism; J96.22 Acute and chronic respiratory failure with hypercapnia; J96.21 Acute and chronic respiratory failure with hypoxia; J44.1 Chronic obstructive pulmonary disease with (acute) exacerbation; J44.0 Chronic obstructive pulmonary disease with (acute) lower respiratory infection; E87.3 Alkalosis; I50.32 Chronic diastolic (congestive) heart failure; R65.20 Severe sepsis without septic shock; E11.65 Type 2 diabetes mellitus with hyperglycemia; E78.5 Hyperlipidemia, unspecified; K21.9 Gastro-esophageal reflux disease without esophagitis; E78.00 Pure hypercholesterolemia, unspecified; F17.210 Nicotine dependence, cigarettes, uncomplicated; J20.8 Acute bronchitis due to other specified organisms; M94.0 Chondrocostal junction syndrome [Tietze]; R59.0 Localized enlarged lymph nodes; I11.0 Hypertensive heart disease with heart failure; I25.10 Atherosclerotic heart disease of native coronary artery without angina pectoris; E87.5 Hyperkalemia; E55.9 Vitamin D deficiency, unspecified; E66.8 Other obesity; T38.0X5A Adverse effect of glucocorticoids and synthetic analogues, initial encounter; Z71.6 Tobacco abuse counseling; Z95.5 Presence of coronary angioplasty implant and graft; Z82.49 Family history of ischemic heart disease and other diseases of the circulatory system; Z83.3 Family history of diabetes mellitus; Z79.82 Long term (current) use of aspirin; Z79.899 Other long term (current) drug therapy; Z79.84 Long term (current) use of oral hypoglycemic drugs; Z79.02 Long term (current) use of antithrombotics/antiplatelets; Y92.89 Other specified places as the place of occurrence of the external cause; Z68.35 Body mass index [BMI] 35.0-35.9, adult

== ENCOUNTER → 2018-12-10 | Outpatient (CLI) | payer MEDICARE, MEDICAID ==
[~2018-12-10] MED LIST changes: +ASPIRIN CHEWABL81 MG PO; +ATORVASTATIN CA20 M1 PO; +BUPROPION HCL150 M1 PO; +CLOPIDOGREL75 MG PO; +CYCLOBENZAPRINE10 MG PO; +GLIPIZIDE10 M1 PO; +MELOXICAM7.5 MG PO; +METFORMIN HYD1000 MG PO; +METOPROLOL SUCC50 M1 PO; +MUCINEX ER600 MG PO; +NICOTINE PATCH1 EAC2 TD; +PANTOPRAZOLE SO40 MG PO; +PREDNISONE10 MG PO; +ZITHROMAX500 MG PO
== END | disposition home or self-care (01) ==
LOC: RAD 09:33
DX: M46.04 Spinal enthesopathy, thoracic region (principal); R07.81 Pleurodynia

== ENCOUNTER 2018-12-23 14:27 | Emergency (ER) | payer MEDICARE, MEDICAID ==
[~2018-12-23] VITALS: Ht 175.2 cm; Wt 109.3 kg
[2018-12-23 14:27] VITALS: BP 113/62
[~2018-12-23 14:27] MED LIST changes: -ATORVASTATIN CA20 M1 PO; -BUPROPION HCL150 M1 PO; -CYCLOBENZAPRINE10 MG PO; -MELOXICAM7.5 MG PO; -METFORMIN HYD1000 MG PO
[2018-12-23] MEDS ORDERED: MELOXICAM7.5 MG PO (14:39)
[2018-12-23] MEDS ORDERED: BUPROPION HCL150 M1 PO (14:39)
[2018-12-23] MEDS ORDERED: METFORMIN HYD1000 MG PO (14:40)
[2018-12-23] MEDS ORDERED: ATORVASTATIN CA20 M1 PO (14:40)
[2018-12-23] MEDS ORDERED: CYCLOBENZAPRINE10 MG PO (15:10)
== END 2018-12-23 15:05 | disposition home or self-care (01) ==
LOC: ED 14:27
DX: M62.830 Muscle spasm of back (principal); I10 Essential (primary) hypertension; E11.9 Type 2 diabetes mellitus without complications; E78.5 Hyperlipidemia, unspecified; M06.9 Rheumatoid arthritis, unspecified; F17.200 Nicotine dependence, unspecified, uncomplicated; Z79.899 Other long term (current) drug therapy; Z79.84 Long term (current) use of oral hypoglycemic drugs

== ENCOUNTER → 2019-01-09 | Outpatient (CLI) | payer MEDICARE, MEDICAID ==
[~2019-01-09] MED LIST changes: +ATORVASTATIN CA20 M1 PO; +BUPROPION HCL150 M1 PO; +CYCLOBENZAPRINE10 MG PO; +MELOXICAM7.5 MG PO; +METFORMIN HYD1000 MG PO
== END | disposition home or self-care (01) ==
LOC: CT 01-08 14:00
DX: J43.9 Emphysema, unspecified (principal); E11.9 Type 2 diabetes mellitus without complications; I10 Essential (primary) hypertension; I25.10 Atherosclerotic heart disease of native coronary artery without angina pectoris

== ENCOUNTER → 2019-05-28 | Outpatient (CLI) | payer MEDICARE ==
[2019-05-28 12:58] LABS: HEMATOCRIT 44.2 % (42.0-52.0); HEMOGLOBIN 13.6 g/dl (14.0-18.0); MEAN CELL VOLUME 97.8 fl (80.0-94.0); MEAN CORPUSCULAR HGB 30.1 pg (27.0-31.0); MEAN CORPUSCULAR HGB CONC 30.8 g/dl (33.0-37.0); MEAN PLATELET VOLUME 9.7 fl (9.6-12.3); RED BLOOD COUNT 4.52 10*6/uL (4.50-5.90); RED CELL DISTRI WIDTH 14.9 % (0-14.5); WHITE BLOOD COUNT 10.6 10*3/uL (4.8-10.8)
[2019-05-28 13:45] LABS: ALBUMIN 3.4 gm/dl (3.1-4.5); BUN 14 mg/dl (7-24); CHLORIDE 95 mmol/L (98-107); LIPASE 142 U/L (73-393); SODIUM 133 mmol/L (136-145)
[2019-05-28 13:49] LABS: ALKALINE PHOSPHATASE 120 U/L (45-117); CHOLESTEROL 143 mg/dL (<200); CREATININE 0.86 mg/dL (0.70-1.30); HDL CHOLESTEROL 35 mg/dl (40-60); LDL CHOLESTEROL 71 mg/dL (9-159); SGOT/AST 11 IU/L (3-35); SGPT/ALT 36 U/L (12-78); TOTAL PROTEIN 7.7 gm/dL (6.4-8.2); TRIGLYCERIDES 187 mg/dl (<150); VLDL CHOLESTEROL 37 mg/dL (6-40)
[2019-05-28 14:13] LABS: VITAMIN D, 25-HYDROXY 17.4 ng/mL (30-100)
== END | disposition home or self-care (01) ==
LOC: LAB 12:04
PROVIDERS: Family Medicine
DX: Z12.5 Encounter for screening for malignant neoplasm of prostate (principal); E78.00 Pure hypercholesterolemia, unspecified; I10 Essential (primary) hypertension; E55.9 Vitamin D deficiency, unspecified; K21.9 Gastro-esophageal reflux disease without esophagitis; E11.9 Type 2 diabetes mellitus without complications

== ENCOUNTER 2019-08-05 12:55 | Inpatient (IN) | payer MEDICARE ==
[~2019-08-05] VITALS: Ht 175.3 cm; Wt 111.6 kg
--- NOTE | ~2019-08-05 | WRIGHTHP ---
[place], [place] PATIENT HISTORY AND PHYSICAL EXAM NAME: VU CONCEPCION [facility] #: [id number] UNIT #: [id number] ROOM: [facility] DOCTOR: SILVIO SHIELDS MD BIRTHDATE: [birth year] DOS: 08/05/2019 HISTORY OF PRESENT ILLNESS: The patient is 59 years old, not a patient that known to me. He sees Dr. Begum. He has had a cold and cough like symptoms for the last few days. He had some leftover amoxicillin at home and decided to take the amoxicillin and some DayQuil that he had at home. He said, these medicines, he has taken before with he started itching all over his body and his hands as well as in his mouth and started developing some shortness of breath, so he decided to come into the Emergency Room. He denies having any chest pains or palpitations, does not have any fever or chills, does not have any abdominal pain, nausea, emesis. He was found to have itching and red rash all over his body and was thought to be having an allergic reaction to the PENICILLIN or the DAYQUIL, so we had decided to admit him. Also was hypoxic with bronchospasm. This morning he feels okay. His breathing is much improved, but during the night, he did become hypoxic. He uses a CPAP at home, but did not have his CPAP machine here. PAST MEDICAL HISTORY: Significant for, 1. COPD. 2. Obstructive sleep apnea. 3. Type 2 diabetes mellitus, non-insulin dependent. 4. Primary osteoarthritis. 5. Major depression. 6. History of coronary artery disease with diastolic CHF, followed by Dr. Olivas and moderate cigarette smoker. MEDICATIONS: Pending. SOCIAL HISTORY: Smoker about half a pack of cigarettes a day. Denies using any alcohol. MEDICATIONS: Metformin 1000 mg b.i.d., bupropion 150 mg twice a day, metoprolol 50 mg daily, lisinopril/hydrochlorothiazide (Zestoretic) 08/10.5 one tablet daily, pravastatin 40 daily, pioglitazone 15 daily, vitamin D 2000 units daily, Protonix 40 mg daily. PHYSICAL EXAMINATION: GENERAL: He is awake and alert and oriented. VITAL SIGNS: Graphic trend shows a pressure of 118/64, pulse 101, respirations 18, temperature 97.5. LUNGS: Diminished breath sounds. Scattered wheezes and rhonchi. HEART: Regular. ABDOMEN: Obese, soft. EXTREMITIES: No edema noted. LABORATORY DATA: At the time of admission, WBC count is 11.9, hemoglobin 16.6, hematocrit 52.3, platelets 307. Chest x-ray shows no evidence of lung disease. Lactic acid is 6.1. Comprehensive glucose 373, BUN 15, creatinine 1.48. Sodium 133, potassium 4.0, chloride 96, bicarbonate 26. Liver enzymes were normal. Troponin was normal. [place], [place] PATIENT HISTORY AND PHYSICAL EXAM NAME: VU CONCEPCION UNIT #: [id number] ROOM: [facility] DOCTOR: SILVIO SHIELDS MD BIRTHDATE: [birth year] ASSESSMENT AND PLAN: 1. The patient who presents with acute onset of shortness of breath possibly an allergic reaction with early anaphylaxis from PENICILLIN as well as a [employer] cough medications that he had. He was started on IV Solu-Medrol. 2. Acute exacerbation of chronic obstructive pulmonary disease with acute respiratory distress syndrome, on IV steroids, breathing treatment. 3. Acute tracheobronchitis. Azithromycin has been added. 4. Lactic acidosis, rule out sepsis. Blood cultures and urine cultures sent. The patient was given slow IV hydration. This could also be from the metformin that he is on. 5. Type 2 diabetes mellitus, non-insulin dependent. Blood sugars on the high side now due to the high dose of steroids. We will decrease the dose of the steroids and add insulin for coverage scale. 6. Obstructive sleep apnea. Advised the patient to see whether we could get the settings that he was at home and start CPAP here. SILVIO SHIELDS MD CM:HISPHYS:PATIENT HISTORY AND PHYSICAL EXAMINATION 133 48 SILVIO SHIELDS MD 08/06/19 1349 interface
--- NOTE | ~2019-08-05 | EKG ---
[place], [place] ELECTROCARDIOGRAM REPORT NAME: VU CONCEPCION UNIT #: [id number] ROOM: [facility] DOCTOR: TEODORO DRAFT REPORT BIRTHDATE: [birth year] [facility] Test Date: 2019-08-05 Test Time: 15:34:54 Pat Name: VU CONCEPCION Department: Room: [facility] Gender: M Miner Pick: : 1960 Requested By: NIKOLAS HUGHES Order Number: [id number] Reading MD: Rowdy Ness MD Measurements Intervals [place] Rate: 84 P: 55 [place]: 150 QRS: 65 QRSD: 91 T: 51 QT: 357 QTc: 422 Interpretive Statements Sinus rhythm Borderline low voltage, extremity leads Compared to ECG 10/25/2018 19:03:27 Sinus tachycardia no longer present Electronically Signed On 08-07-2019 12:02:16 PDT by Rowdy Ness MD CM:EKGRPT:ELECTROCARDIOGRAM REPORT [id number] NIKOLAS VALERIO DRAFT REPORT NIKOLAS HUGHES MD
--- NOTE | ~2019-08-05 | PR ---
[place], [place] PROGRESS NOTE NAME: VU CONCEPCION UNIT #: [id number] ROOM: [facility] DOCTOR: SILVIO SHIELDS MD BIRTHDATE: [birth year] DOS: 08/07/2019 SUBJECTIVE: The patient is sitting up in chair, had a good night. Does not have any new complaints. He is breathing much better. Denies having any chest pains or palpitations. Dr. Olivas did see him. OBJECTIVE: VITAL SIGNS: Blood pressure is 110/67, pulse of 92, respirations 21, temperature 97.7. LUNGS: Clear. HEART: Regular. ABDOMEN: Obese, soft, nontender. EXTREMITIES: Without any edema. ASSESSMENT AND PLAN: 1. Allergic reaction to medications. 2. Chronic obstructive pulmonary disease with acute exacerbation. 3. Diastolic dysfunction with poorly-controlled hypertension. Medications increased by Dr. Olivas. Echocardiogram pending. 4. Type 2 diabetes mellitus, insulin-dependent with steroid-induced hyperglycemia. Blood sugars came down. Discussed with the patient, will discontinue Actos because of increased leg swelling and consider cutting back on the metformin dose. Add Lantus today. The patient is stable and can be discharged and followed up as an outpatient. SILVIO SHIELDS MD CM:PNTRANS [id number] SILVIO SHIELDS MD 08/08/19 0051 interface
--- NOTE | ~2019-08-05 | CON ---
[place], [place] REPORT OF CONSULTATION NAME: VU CONCEPCION UNIT #: [id number] ROOM: [facility] DOCTOR: GABINO CASTILLO [facility] BIRTHDATE: [birth year] DOS: 08/07/2019 CARDIOLOGY CONSULTATION HISTORY OF PRESENT ILLNESS: I examined the patient and reviewed may rounds with the staff and discussed. The patient came in with acute respiratory failure and acute anaphylaxis and the patient is tachycardic and also found to have diastolic dysfunction of the left ventricle and chronic kidney disease stage 2 and no history of heart attack at this time and no acute cardiac decompensation. No syncope or presyncope. Cognition is good and the patient is tachycardic. PHYSICAL EXAMINATION: GENERAL: Not in any acute distress. NECK: Positive hepatojugular reflux. LUNGS: Bibasilar rales and diminished breath sounds at bases. HEART: S1, S2 regular. Heart rate is increased. ABDOMEN: Soft. PLAN: Discussed with the patient increase the beta blocking agents to optimize the medical therapy. No acute cardiovascular intervention at this time. We will continue to adjust the medication, maintain the optimal heart rate and appropriate compensation of the cardiovascular status. I will follow the patient closely as an outpatient. May do further evaluation as an outpatient. PAST MEDICAL HISTORY: The patient has a history of chronic obstructive airway disease, obstructive sleep apnea, type 2 diabetes mellitus, osteoarthritis and history of depression. The patient has diastolic congestive heart failure and I have been following this patient for a while and the patient has a moderate history of smoking. Thank you very much for asking me to see the patient. I will follow the patient. DARIUS LLOYD MD CM:CONSTR:REPORT OF CONSULTATION 9 08/09/191910 interface
--- NOTE | ~2019-08-05 | EKG ---
[place], [place] ELECTROCARDIOGRAM REPORT NAME: VU CONCEPCION UNIT #: [id number] ROOM: [facility] DOCTOR: TEODORO DRAFT REPORT BIRTHDATE: [birth year] [facility] Test Date: 2019-08-05 Test Time: 12:58:18 Pat Name: VU CONCEPCION Department: Room: [facility] Gender: M Behavior Analyst: : 1960 Requested By: NIKOLAS HUGHES Order Number: [id number] Reading MD: Rowdy Ness MD Measurements Intervals [place] Rate: 99 P: 62 IN: 147 QRS: 72 QRSD: 82 T: 56 QT: 362 QTc: 465 Interpretive Statements Sinus rhythm Compared to ECG 10/25/2018 19:03:27 Sinus tachycardia no longer present Electronically Signed On 08-07-2019 12:02:13 PDT by Rowdy Ness MD CM:EKGRPT:ELECTROCARDIOGRAM REPORT [id number] 1202 NIKOLAS VALERIO DRAFT REPORT NIKOLAS HUGHES MD
--- NOTE | ~2019-08-05 | EKG ---
[place], [place] ELECTROCARDIOGRAM REPORT NAME: VU CONCEPCION UNIT #: [id number] ROOM: [facility] DOCTOR: TEODORO DRAFT REPORT BIRTHDATE: [birth year] [facility] Test Date: 2019-08-05 Test Time: 19:05:31 Pat Name: VU CONCEPCION Department: Room: [facility] Gender: M Tie Sawyer: : 1960 Requested By: NIKOLAS HUGHES Order Number: [id number] Reading MD: Rowdy Ness MD Measurements Intervals [place] Rate: 89 P: 44 TN: 154 QRS: 66 QRSD: 88 T: 46 QT: 346 QTc: 421 Interpretive Statements Sinus rhythm Borderline low voltage, extremity leads Baseline wander in lead(s) V5,V6 Compared to ECG 10/25/2018 19:03:27 Sinus tachycardia no longer present Electronically Signed On 08-07-2019 12:02:18 PDT by Rowdy Ness MD CM:EKGRPT:ELECTROCARDIOGRAM REPORT [id number] [id number] NIKOLAS HUGHES MD EPIPHANY DRAFT REPORT NIKOLAS HUGHES MD
[2019-08-05 12:55] VITALS: BP 93/56
[2019-08-05 13:30] VITALS: BP 98/74
[2019-08-05 13:33] LABS: ABG BASE EXCESS -0.7 mmol/L (-2.0-2.0); ABG HCO3 27.5 mmol/l (22-26); ABG O2 SATURATION 83.6 % (95-97); ARTERIAL BLOOD GAS PCO2 60.4 mmHg (35-45); ARTERIAL BLOOD GAS PH 7.277 (7.35-7.45); ARTERIAL BLOOD GAS PO2 52.2 mmHg (80-90)
--- NOTE | 2019-08-05 13:33 | NUR ---
PT. PLACED ON BIPAP AT 14/8 WITH O2 AT 45%, SAT 92 HEART RATE 87. ABGS DRAWN AND SENT.
[2019-08-05 13:36] LABS: ALBUMIN 3.2 gm/dl (3.1-4.5); ALKALINE PHOSPHATASE 134 U/L (45-117); BUN 15 mg/dl (7-24); CHLORIDE 96 mmol/L (98-107); CREATININE 1.48 mg/dL (0.70-1.30); SGOT/AST 7 IU/L (3-35); SGPT/ALT 24 U/L (12-78); SODIUM 133 mmol/L (136-145); TOTAL PROTEIN 7.7 gm/dL (6.4-8.2); TROPONIN I < 0.015 ng/ml (<0.045)
[2019-08-05 13:39] LABS: ACT PARTIAL THROMBO TIME 24.6 SECONDS (20.0-32.1)
[2019-08-05 13:44] LABS: BASO # 0.1 10*3/uL (0.0-0.1); BASO % 0.4 % (0.0-1.0); EOS # 0.2 10*3/uL (0.0-0.4); EOS % 1.7 % (1.0-4.0); HEMATOCRIT 52.3 % (42.0-52.0); HEMOGLOBIN 16.6 g/dl (14.0-18.0); LYMPH % 33.8 % (27.0-41.0); MEAN CELL VOLUME 94.7 fl (80.0-94.0); MEAN CORPUSCULAR HGB 30.1 pg (27.0-31.0); MEAN CORPUSCULAR HGB CONC 31.7 g/dl (33.0-37.0); MEAN PLATELET VOLUME 9.6 fl (9.6-12.3); MONO # 0.6 10*3/uL (0.1-1.0); MONO % 4.8 % (3.0-9.0); NEUT # 6.9 10*3/uL (2.3-7.9); NEUT % 57.9 % (47.0-73.0); PLATELET COUNT AUTOMATED 307 10*3/uL (130-400); RED BLOOD COUNT 5.52 10*6/uL (4.50-5.90); RED CELL DISTRI WIDTH 14.9 % (0-14.5); WHITE BLOOD COUNT 11.9 10*3/uL (4.8-10.8)
[2019-08-05 14:00] VITALS: BP 106/74
[2019-08-05 15:00] VITALS: BP 108/76
[2019-08-05] MEDS ORDERED: METOPROLOL SUCC50 M1 PO (15:45)
[2019-08-05] MEDS ORDERED: PRAVACHOL40 MG PO (15:46)
[2019-08-05] MEDS ORDERED: ZESTORETIC 10-1 EACH PO (15:46)
[2019-08-05] MEDS ORDERED: ACTOS15 M1 PO (15:47)
[2019-08-05] MEDS ORDERED: VITAMIN D-32000 UNI1 PO (15:47)
[2019-08-05] MEDS ORDERED: PLAVIX75 M1 PO (15:48)
[2019-08-05] MEDS ORDERED: PROTONIX40 MG PO (15:48)
--- NOTE | 2019-08-05 16:22 | NUR ---
[place] 3.1 DR HUGHES NOTIFIED
[2019-08-05 16:45] VITALS: BP 122/74
--- NOTE | 2019-08-05 16:45 | NUR ---
A 59, admitted to ICCU, under the services of SILVIO New MD with a diagnosis of ANAPHYLACTIC REACTION. Chief complaint is ANAPHYLACTIC REACTION. Patient arrived via stretcher from ER. Monitor applied. Initial assessment completed. Vital signs taken and recorded. SILVIO NEW MD notified of admission to the unit. Orders received. See assessment for past medical history, medications and allergies. Patient and/or family oriented to unit. [facility] ICCU visitation policy reviewed. Clothing/patient valuable form completed. FLOOD
--- NOTE | 2019-08-05 18:55 | NUR ---
DR SHIELDS NOTIFIED OF CRITICAL LACTIC ACID AND TROPONIN LEVELS. NEW ORDERS RECEIVED. CALLED DR TOBIAS'S ANSWERING SERVICE TO NOTIFY HIM OF CONSULT. DR URIAS ANSWERED AND I GAVE HIM THE INFO. REGARDING PT. HE STATED TO CALL DR LLOYD AT 0600 TOMORROW AND TELL HIM ABOUT CONSULT AND UPDATE HIM ON PT.
--- NOTE | 2019-08-05 19:46 | NUR ---
SITTING ON SIDE OF BED. VERY CONVERSIVE. SPUTUM SPECIMEN CONTAINER GIVEN TO PT.
[2019-08-05 20:00] VITALS: BP 115/59
--- NOTE | 2019-08-05 21:47 | NUR ---
DR SHIELDS NOTIFIED OF GLUCOSE. ORDERS RECEIVED.
--- NOTE | 2019-08-05 23:05 | NUR ---
PT DOZING IN RECLINER CHAIR. NO ACUTE DISTRESS.
[2019-08-06] VITALS: BP 108/58
[2019-08-06 04:00] VITALS: BP 94/52
[2019-08-06 04:38] LABS: BASO % 0.2 % (0.0-1.0); HEMATOCRIT 40.2 % (42.0-52.0); HEMOGLOBIN 12.6 g/dl (14.0-18.0); LYMPH % 7.9 % (27.0-41.0); MEAN CORPUSCULAR HGB 29.8 pg (27.0-31.0); MEAN CORPUSCULAR HGB CONC 31.3 g/dl (33.0-37.0); MEAN PLATELET VOLUME 9.6 fl (9.6-12.3); MONO # 0.2 10*3/uL (0.1-1.0); MONO % 1.9 % (3.0-9.0); NEUT # 10.9 10*3/uL (2.3-7.9); NEUT % 89.5 % (47.0-73.0); PLATELET COUNT AUTOMATED 221 10*3/uL (130-400); RED BLOOD COUNT 4.23 10*6/uL (4.50-5.90); WHITE BLOOD COUNT 12.2 10*3/uL (4.8-10.8)
[2019-08-06 04:53] LABS: BUN 20 mg/dl (7-24); CHLORIDE 98 mmol/L (98-107); CREATININE 1.16 mg/dL (0.70-1.30); POTASSIUM 4.3 mmol/L (3.5-5.1); SODIUM 133 mmol/L (136-145)
--- NOTE | 2019-08-06 06:28 | NUR ---
DR LLOYD NOTIFIED OF CONSULT. ORDERS RECEIVED AND HE WILL SEE PT THIS AM.
[2019-08-06 08:00] VITALS: BP 108/60
--- NOTE | 2019-08-06 08:34 | NUR ---
DR SHIELDS IN TO SEE PT. UPDATED HER ON PT'S CONDITION AND PLAN OF CARE.
--- NOTE | 2019-08-06 10:00 | NUR ---
Work Car Operator in to talk to patient. Patient states lives at home with his . There are 2 steps in the home. Physician: Dr. Joel Begum Pharmacy: [facility] Home health services: none Patient's level of ADLs: MINIMAL ASSIST Patient has working utilities: yes DME: cane, c-pap, O2 @ 2L nc, nebulizer, O2 supplier [facility] Follow-up physician's appointment after d/c: he prefers to make his own follow up appt after discharge Does patient want to access PORTAL?: no Discharge plan discussed with patient. He lives at home with his . He is independent in his ADLs and ambulates with a cane. Discussed home health care services and he denies any home needs. His is at the bedside. When medically stable he will be discharged to home. His will provide transportation on discharge. KAMALA RAMOS
--- NOTE | 2019-08-06 11:17 | NUR ---
STAT REFLEX ORDERED FOR BEDSIDE GLUCOSE OF 482.
[2019-08-06 12:00] VITALS: BP 118/64; BP 118/97
--- NOTE | 2019-08-06 14:37 | NUR ---
Spoke to Sandra at [facility] regarding patient's concerns regarding filter for c-pap and big filter on O2 concentrator. The c-pap department calls patients when they are eligible to receive new filters. He is due for a new filter on August 11 and should be receiving a call from the c-pap department any day now. The big filter on the O2 concentrator was replaced in October and [facility] would be reaching out to the patient in the next couple of months for a replacement. Some of the filters are able to be washed. Sandra states if the patient has any questions he can contact her. Patient and informed.
--- NOTE | 2019-08-06 14:52 | NUR ---
Spoke to Edmar in pharmacy. Cost of glucometer is $8, strips are $4. Notified patient.
[2019-08-06 16:00] VITALS: BP 99/57
--- NOTE | 2019-08-06 16:03 | NUR ---
PT REMAINS SITTING IN THE CHAIR. HE IS VISITING WITH HIS .
--- NOTE | 2019-08-06 17:08 | NUR ---
BEDSIDE GLUCOSE 516. REFLEX ORDERED PER DR SHIELDS'S SLIDING SCALE.
[2019-08-06 18:41] LABS: BUN 24 mg/dl (7-24); CHLORIDE 95 mmol/L (98-107); CREATININE 1.41 mg/dL (0.70-1.30); POTASSIUM 4.9 mmol/L (3.5-5.1); SODIUM 130 mmol/L (136-145)
--- NOTE | 2019-08-06 19:42 | NUR ---
UPDATED DR SHIELDS ON BMP RESULTS. NO NEW ORDERS RECEIVED.
[2019-08-06 20:00] VITALS: BP 106/62
--- NOTE | 2019-08-06 21:32 | NUR ---
AWAITING REFLEX GLUCOSE RE: BED GLUC RESULTED AT 470. PT REMAINS IN CHAIR.
--- NOTE | 2019-08-06 22:33 | NUR ---
PT HAD HOME CPAP CHECKED WITH MAINTENANCE ON DAYLIGHT SHIFT AND THIS WAS SET UP AT 2200 PER PT REQUEST.
[2019-08-07] VITALS: BP 111/62
[2019-08-07 04:00] VITALS: BP 107/61
[2019-08-07 07:23] VITALS: BP 110/67; BP 92/53
--- NOTE | 2019-08-07 07:38 | NUR ---
Awake and alert up in chair. Dr. Olivas in to evaulate. Orders recieved.
--- NOTE | 2019-08-07 08:14 | NUR ---
Dr. You in to [facility]. Orders recieved. Possible discharge today.
[2019-08-07] MEDS ORDERED: CEFUROXIME AXE250 MG PO (08:21)
[2019-08-07] MEDS ORDERED: LISINOPRIL10 M1 PO (08:21)
[2019-08-07] MEDS ORDERED: METOPROLOL SUCC50 M1 PO (08:21)
[2019-08-07] MEDS ORDERED: LANTUS SOL100 UNIT/1 SQ (08:21)
[2019-08-07] MEDS ORDERED: PREDNISONE5 MG PO (08:21)
--- NOTE | 2019-08-07 08:25 | NUR ---
Dr. Olivas was notified of pending discharge.
--- NOTE | 2019-08-07 08:33 | NUR ---
Pharmacy aware of need for education priort o discharge.
--- NOTE | 2019-08-07 10:43 | NUR ---
Diabetic education complete , discharge instruction given, Voiced understanding , Discharged to home.
== END 2019-08-07 10:43 | disposition home or self-care (01) | DRG 915 ==
LOC: ED 12:55 → EDHOLD 14:30 → ICCU 14:30
PROVIDERS: Emergency Medicine; ADMIT Internal Medicine
PROC: 5A09357 Assistance with Respiratory Ventilation, Less than 24 Consecutive Hours, Continuous Positive Airway Pressure (ICD-10-PCS; principal; 2019-08-05)
PROC: 5A09357 Assistance with Respiratory Ventilation, Less than 24 Consecutive Hours, Continuous Positive Airway Pressure (ICD-10-PCS; 2019-08-07)
DX: T78.2XXA Anaphylactic shock, unspecified, initial encounter (principal); J96.01 Acute respiratory failure with hypoxia; J44.0 Chronic obstructive pulmonary disease with (acute) lower respiratory infection; J44.1 Chronic obstructive pulmonary disease with (acute) exacerbation; E87.2 Acidosis; I50.32 Chronic diastolic (congestive) heart failure; I13.0 Hypertensive heart and chronic kidney disease with heart failure and stage 1 through stage 4 chronic kidney disease, or unspecified chronic kidney disease; J20.9 Acute bronchitis, unspecified; E11.65 Type 2 diabetes mellitus with hyperglycemia; E11.22 Type 2 diabetes mellitus with diabetic chronic kidney disease; N18.2 Chronic kidney disease, stage 2 (mild); K21.9 Gastro-esophageal reflux disease without esophagitis; T38.0X5A Adverse effect of glucocorticoids and synthetic analogues, initial encounter; G47.33 Obstructive sleep apnea (adult) (pediatric); M19.91 Primary osteoarthritis, unspecified site; F32.9 Major depressive disorder, single episode, unspecified; I25.10 Atherosclerotic heart disease of native coronary artery without angina pectoris; F17.210 Nicotine dependence, cigarettes, uncomplicated; E78.5 Hyperlipidemia, unspecified; Z88.1 Allergy status to other antibiotic agents; Z88.8 Allergy status to other drugs, medicaments and biological substances; Z88.6 Allergy status to analgesic agent; Z87.01 Personal history of pneumonia (recurrent); Y92.89 Other specified places as the place of occurrence of the external cause; Z79.4 Long term (current) use of insulin; Z95.5 Presence of coronary angioplasty implant and graft; Z82.49 Family history of ischemic heart disease and other diseases of the circulatory system; Z83.3 Family history of diabetes mellitus

== ENCOUNTER 2019-10-03 11:37 | Inpatient (IN) | payer MEDICARE ==
[~2019-10-03] VITALS: Ht 175.3 cm; Wt 98.4 kg
[~2019-10-03 11:37] MED LIST changes: +ACTOS15 M1 PO; +CEFUROXIME AXE250 MG PO; +LANTUS SOL100 UNIT/1 SQ; +LISINOPRIL10 M1 PO; +PLAVIX75 M1 PO; +PRAVACHOL40 MG PO; +PREDNISONE5 MG PO; +PROTONIX40 MG PO; +VITAMIN D-32000 UNI1 PO; +ZESTORETIC 10-1 EACH PO
--- NOTE | 2019-10-03 12:00 | NUR ---
PT ARRIVED VIA WHEELCHAIR FROM ADMITTING. PT IN ACUTE RESP. DISTRESS, POX 54% ON RA. PT PLACED ON A NON-REBREATHER, RAPID RESPONSE CALLED. POX NOW 100%. ORDERS GIVEN TO TRANSFER PT TO ICCU.
[2019-10-03 12:18] LABS: ABG BASE EXCESS 5.7 mmol/L (-2.0-2.0); ARTERIAL BLOOD GAS PH 7.283 (7.35-7.45)
[2019-10-03 12:20] VITALS: BP 135/87
--- NOTE | 2019-10-03 12:20 | NUR ---
A 59, admitted to ICCU, under the services of SILVIO New MD with a diagnosis of CHF. Chief complaint is SUDDEN ONSET SOB. Patient arrived via stretcher from DC. Monitor applied. Initial assessment completed. Vital signs taken and recorded. SILVIO NEW MD notified of admission to the unit. Orders received. See assessment for past medical history, medications and allergies. Patient and/or family oriented to unit. [facility] ICCU visitation policy reviewed. Clothing/patient valuable form completed. SANDHYA ANDRADE
--- NOTE | 2019-10-03 12:20 | NUR ---
PT TRANSFERED FROM IN TO ICCU BED 2 AT THIS TIME. PT IN RESPIRATORY DISTRESS. BASELINE CRACKLES NOTED THROUGHOUT. POX 99 ON 100% ON REBREATHER ON ARRIVAL TO ICCU. RESPIRATORY RATE 37. SINUS TACHY 108. BP 135/87.
[2019-10-03 12:25] LABS: BASO % 0.2 % (0.0-1.0); EOS # 0.2 10*3/uL (0.0-0.4); EOS % 1.2 % (1.0-4.0); LYMPH # 1.7 10*3/uL (1.3-4.4); LYMPH % 9.7 % (27.0-41.0); MEAN CELL VOLUME 97.7 fl (80.0-94.0); MEAN CORPUSCULAR HGB 29.5 pg (27.0-31.0); MEAN CORPUSCULAR HGB CONC 30.2 g/dl (33.0-37.0); MEAN PLATELET VOLUME 9.2 fl (9.6-12.3); MONO # 1.5 10*3/uL (0.1-1.0); MONO % 8.5 % (3.0-9.0); NEUT # 13.9 10*3/uL (2.3-7.9); NEUT % 79.7 % (47.0-73.0); PLATELET COUNT AUTOMATED 231 10*3/uL (130-400); RED CELL DISTRI WIDTH 14.6 % (0-14.5); WHITE BLOOD COUNT 17.4 10*3/uL (4.8-10.8)
[2019-10-03 12:40] LABS: ALBUMIN 2.8 gm/dl (3.1-4.5); ALKALINE PHOSPHATASE 101 U/L (45-117); BUN 12 mg/dl (7-24); CHLORIDE 96 mmol/L (98-107); CREATININE 0.93 mg/dL (0.70-1.30); POTASSIUM 4.7 mmol/L (3.5-5.1); SGOT/AST 12 IU/L (3-35); SGPT/ALT 23 U/L (12-78); SODIUM 133 mmol/L (136-145); TOTAL PROTEIN 7.8 gm/dL (6.4-8.2)
[2019-10-03 12:41] LABS: TROPONIN I < 0.015 ng/ml (<0.045)
--- NOTE | 2019-10-03 12:53 | NUR ---
PATIENT PLACED ON BIPAP AFTER BLOOD GAS RESULTS. AWAITNG PULMONOLGY CONSULT TO RECIEVE ORDERS NURSE AWARE.
--- NOTE | 2019-10-03 12:58 | NUR ---
DR DIXON MADE AWARE OF NEW CONSULT ORDER. NEW ORDERS RECEIVED.
--- NOTE | 2019-10-03 13:00 | NUR ---
DR. SHIELDS IN TO SEE PATIENT. PATIENT CONDITION REVIEWED, ORDERS RECEIVED.
[2019-10-03] MEDS ORDERED: ASPIRIN ADULT L81 M2 PO (13:44)
[2019-10-03] MEDS ORDERED: DAILY VALUE1 EACH PO (13:45)
--- NOTE | 2019-10-03 14:36 | NUR ---
CALLBACK NUMBER PROVIDED TO JOSH FROM THE CARDIOLOGY ANSWERING SERVICE FOR DR. LLOYD REGARDING NEW CONSULT FOR CHF.
[2019-10-03 15:16] LABS: BILIRUBIN NEGATIVE (NEGATIVE); BLOOD 1+ (NEGATIVE); CLARITY CLEAR (CLEAR); COLOR YELLOW (YELLOW); GLUCOSE 2+ (NEGATIVE); KETONE NEGATIVE (NEGATIVE); LEUKO ESTERASE NEGATIVE (NEGATIVE); NITRITE NEGATIVE (NEGATIVE); PH 5.5 (5.0-9.0); SPECIFIC GRAVITY 1.025 (1.005-1.030); UROBILINOGEN 0.2 E.U./dl (0.2-1.0)
[2019-10-03 15:22] LABS: ABG BASE EXCESS 7.5 mmol/L (-2.0-2.0); ARTERIAL BLOOD GAS PH 7.255 (7.35-7.45)
[2019-10-03 16:00] VITALS: BP 118/78
[2019-10-03 16:01] LABS: HYALINE CAST 51-100
[2019-10-03 16:02] LABS: WBC 0-2 wbc/hpf (0-5)
[2019-10-03 16:42] LABS: ABG BASE EXCESS 8.9 mmol/L (-2.0-2.0); ARTERIAL BLOOD GAS PH 7.299 (7.35-7.45)
[2019-10-03 20:00] VITALS: BP 136/84
--- NOTE | 2019-10-03 20:28 | NUR ---
PATIENT GIVEN TYLENOL FOR FEVER OF 101.1. REMOVED PATIENTS BIPAP TO GIVE HIM PILLS AND PATIENT COUGHED UP LARGE AMOUNT OF YELLOW FAJARDO SPUTUM. PATIENT TOOK PILLS WITH NO PROBLEMS SWALLOWING. HOWEVER PATIENT PULSE OX DROPPED TO 84 % WHILE OFF OF THE BIPAP . PATIENT PLACED BACK ON THE BIPAP AND IS RESTING COMFORTBALY AT THIS TIME PULSE OX NOW IS 94%.
[2019-10-04] VITALS: BP 117/76
[2019-10-04 04:00] VITALS: BP 137/80
--- NOTE | 2019-10-04 04:34 | NUR ---
ATTEMPTED TO TAKE PATIENT ODFF BIPAP FOR A FEW MINS FOR A BREAK AND DRINK OF WATER PATIENT TOOK ONE DRINK OF WATER AND PULSE OX DROPPED TO 82% VERY QUICKLY. PATIENT THEN PLACED BACK ON BIPAP AT THISD TIME. PATIENTS PULSE OX IS 94% ON BIPAP.
[2019-10-04 05:12] LABS: BUN 16 mg/dl (7-24); CHLORIDE 95 mmol/L (98-107); CREATININE 0.93 mg/dL (0.70-1.30); SODIUM 136 mmol/L (136-145)
[2019-10-04 06:35] LABS: BASO % 0.2 % (0.0-1.0); EOS # 0.4 10*3/uL (0.0-0.4); EOS % 2.8 % (1.0-4.0); HEMATOCRIT 41.2 % (42.0-52.0); HEMOGLOBIN 12.4 g/dl (14.0-18.0); LYMPH # 1.6 10*3/uL (1.3-4.4); LYMPH % 12.1 % (27.0-41.0); MEAN CORPUSCULAR HGB 29.8 pg (27.0-31.0); MEAN CORPUSCULAR HGB CONC 30.1 g/dl (33.0-37.0); MEAN PLATELET VOLUME 9.7 fl (9.6-12.3); MONO # 1.2 10*3/uL (0.1-1.0); MONO % 9.1 % (3.0-9.0); NEUT # 9.9 10*3/uL (2.3-7.9); NEUT % 75.3 % (47.0-73.0); PLATELET COUNT AUTOMATED 222 10*3/uL (130-400); RED BLOOD COUNT 4.16 10*6/uL (4.50-5.90); RED CELL DISTRI WIDTH 14.6 % (0-14.5); WHITE BLOOD COUNT 13.1 10*3/uL (4.8-10.8)
[2019-10-04 07:41] LABS: ABG BASE EXCESS 9.8 mmol/L (-2.0-2.0); ARTERIAL BLOOD GAS PH 7.389 (7.35-7.45)
[2019-10-04 07:55] VITALS: BP 121/77
--- NOTE | 2019-10-04 11:00 | NUR ---
Bread Pan Greaser in to talk to patient. Patient states lives at home with his . There are 2 steps in the home. Physician: Dr. Joel Begum Pharmacy: [facility] Home health services: none Patient's level of ADLs: MINIMAL ASSIST Patient has working utilities: yes DME: cane, c-pap, O2 @ 2L nc, portable O2 tanks, nebulizer, O2 supplier [facility] Follow-up physician's appointment after d/c: he prefers to make his own follow up appt after discharge Does patient want to access PORTAL?: no Discharge plan discussed with patient. He is currently on bipap. He lives at home with his . He is independent in his ADLs and ambulates with a cane occasionally. Discussed home health care services and he is unsure of any home needs at this time. When medically stable he will be discharged to home. His will provide transportation on discharge. Dr. Ness consulted, on levaquin and merrem. BC and sputum cultures pending. KAMALA RAMOS
--- NOTE | 2019-10-04 11:00 | NUR ---
CALLED DR. LLOYD REGARDING CONSULT. NURSE IN IT SUPPORT TECHNICIAN ANSWERED PHONE AND HE STATES THAT HE WILL RELAY MESSAGE TO HIM
[2019-10-04 12:00] VITALS: BP 102/60
--- NOTE | 2019-10-04 12:25 | NUR ---
PLACED UP INTO CHAIR WITH ASSIST TINES ONE. TAKEN OFF BI-PAP AND PLACED ON NASAL CANNULA 5L. PULSE OX 94%. COARSE RALES HEARD IN POSTERIOR BASES OF LUNGS.
--- NOTE | 2019-10-04 13:34 | NUR ---
LATE ENTRY - ADMIT TO SERVICE ORDER WAS ENTERED LATE D/T RAPID RESPONSE ON ADMISSION
[2019-10-04 15:12] LABS: ABG BASE EXCESS 9.3 mmol/L (-2.0-2.0); ARTERIAL BLOOD GAS PH 7.387 (7.35-7.45)
[2019-10-04 16:00] VITALS: BP 90/60
[2019-10-04 20:00] VITALS: BP 106/55
--- NOTE | 2019-10-04 20:35 | NUR ---
PT. RESTING IN RECLINING CHAIR. HEP LOCK IN SARAH AND LH ASYMPT. LUNGS DIMINISHED BILAT, PULSE OX 95% ON 5L NC. ABDOMEN SOFTLY DISTENDED, NORMO. TRACE BILAT EDEMA NOTED. RESP. EASY AND REG ,NO DISTRESS. LUCIEN CORRAL RN
[2019-10-05] VITALS: BP 110/53
[2019-10-05 04:00] VITALS: BP 104/62
[2019-10-05 08:00] VITALS: BP 100/56
--- NOTE | 2019-10-05 08:00 | NUR ---
PT AAOX3. VSS. PT SITTING IN THE CHAIR. RECEIVING BREATHING TREATMENT. FINE PB RALES NOTED BILATERALLY. PT HAS A COUGH PRODUCTIVE FOR YELLOW-GREEN MUCUS. ABD. SOFT WITH ACTIVE BOWEL SOUNDS. PITTING EDEMA NOTED TO LOWER EXT. RIGHT GREATER THAN LEFT. PT DENIES COMPLAINTS AT THIS TIME. DENIES COMPLAINTS. NO ACUTE DISTRESS NOTED A THIS TIME.
[2019-10-05 12:00] VITALS: BP 98/40
--- NOTE | 2019-10-05 15:22 | NUR ---
BAEZA CATH D/C'D INTACT. PT TOLERATED PROCEDURE WELL. PT URINATED 100CC URINE AFTER BAEZA D/C'D.
[2019-10-05 16:00] VITALS: BP 102/42
[2019-10-05 16:03] LABS: BASO % 0.1 % (0.0-1.0); HEMATOCRIT 40.4 % (42.0-52.0); HEMOGLOBIN 12.4 g/dl (14.0-18.0); LYMPH # 0.8 10*3/uL (1.3-4.4); LYMPH % 5.1 % (27.0-41.0); MEAN CELL VOLUME 98.5 fl (80.0-94.0); MEAN CORPUSCULAR HGB 30.2 pg (27.0-31.0); MEAN CORPUSCULAR HGB CONC 30.7 g/dl (33.0-37.0); MEAN PLATELET VOLUME 9.8 fl (9.6-12.3); MONO # 0.6 10*3/uL (0.1-1.0); NEUT # 13.3 10*3/uL (2.3-7.9); NEUT % 89.9 % (47.0-73.0); PLATELET COUNT AUTOMATED 250 10*3/uL (130-400); RED CELL DISTRI WIDTH 14.3 % (0-14.5); WHITE BLOOD COUNT 14.8 10*3/uL (4.8-10.8)
[2019-10-05 16:29] LABS: ALBUMIN 2.5 gm/dl (3.1-4.5); ALKALINE PHOSPHATASE 99 U/L (45-117); CHLORIDE 94 mmol/L (98-107); CREATININE 1.32 mg/dL (0.70-1.30); SGOT/AST 23 IU/L (3-35); SGPT/ALT 33 U/L (12-78); SODIUM 133 mmol/L (136-145); TOTAL PROTEIN 7.4 gm/dL (6.4-8.2)
[2019-10-05 16:37] LABS: BUN 38 mg/dl (7-24); POTASSIUM 5.4 mmol/L (3.5-5.1)
--- NOTE | 2019-10-05 16:51 | NUR ---
DR BENITEZ UPDATED ON PT'S GLUCOSE OF 523 AND POTASSIUM LEVEL OF 5.4. NEW ORDERS RECEIVED.
--- NOTE | 2019-10-05 18:05 | NUR ---
10 UNITS REGULAR INSULIN IV AND 30 UNITS LANTUS SQ GIVEN TO PT PER ORDER.
[2019-10-05 20:00] VITALS: BP 92/54
[2019-10-06] VITALS: BP 100/60
--- NOTE | 2019-10-06 03:03 | NUR ---
Patient resting quietly with no c/o discomfort. Respirations easy and regular. Vital signs stable. No signs/symptoms of distress. JACI MARTINEZ
[2019-10-06 05:51] LABS: BASO % 0.2 % (0.0-1.0); HEMATOCRIT 41.6 % (42.0-52.0); HEMOGLOBIN 12.8 g/dl (14.0-18.0); LYMPH % 6.4 % (27.0-41.0); MEAN CORPUSCULAR HGB 29.8 pg (27.0-31.0); MEAN CORPUSCULAR HGB CONC 30.8 g/dl (33.0-37.0); MEAN PLATELET VOLUME 9.8 fl (9.6-12.3); MONO # 0.6 10*3/uL (0.1-1.0); MONO % 3.9 % (3.0-9.0); NEUT # 13.9 10*3/uL (2.3-7.9); NEUT % 88.2 % (47.0-73.0); PLATELET COUNT AUTOMATED 290 10*3/uL (130-400); RED BLOOD COUNT 4.29 10*6/uL (4.50-5.90); RED CELL DISTRI WIDTH 14.2 % (0-14.5); WHITE BLOOD COUNT 15.7 10*3/uL (4.8-10.8)
[2019-10-06 06:08] LABS: ALBUMIN 2.7 gm/dl (3.1-4.5); ALKALINE PHOSPHATASE 102 U/L (45-117); BUN 34 mg/dl (7-24); CHLORIDE 94 mmol/L (98-107); CREATININE 1.14 mg/dL (0.70-1.30); SGOT/AST 16 IU/L (3-35); SGPT/ALT 34 U/L (12-78); SODIUM 133 mmol/L (136-145); TOTAL PROTEIN 7.5 gm/dL (6.4-8.2)
[2019-10-06 08:00] VITALS: BP 124/46
--- NOTE | 2019-10-06 08:10 | NUR ---
PT SITTING IN THE CHAIR. RESP EASY. VSS. PT DENIES COMPLAINTS. NO ACUTE DISTRESS NOTED.
--- NOTE | 2019-10-06 09:58 | NUR ---
DR DIXON IN TO SEE PT.
[2019-10-06 12:00] VITALS: BP 106/52
--- NOTE | 2019-10-06 12:07 | NUR ---
PT AND PT'S NOTIFIED OF TRANSFER TO [facility].
--- NOTE | 2019-10-06 13:23 | NUR ---
PT TRANSFERED TO 425 VIA CHAIR. PT REPORT GIVEN TO RECEIVING NURSE.
[2019-10-06 16:00] VITALS: BP 104/55
--- NOTE | 2019-10-06 19:36 | NUR ---
PT AWAKE IN BED. RESPIRATIONS EASY. NO S/S OF DISTRESS NOTED. PT DENIES ANY NEEDS AT THIS TIME. FAMILY IN ROOM. WILL MONITOR. CALL LIGHT IN REACH.
[2019-10-06 20:00] VITALS: BP 102/60
--- NOTE | 2019-10-06 23:20 | NUR ---
STAT REFLEX FINALLY RESULTED-479. NOTIFIED. INSTRUCTED TO GIVE 10 UNITS IV INSULIN NOW AND RECHECK BSG IN AM.
[2019-10-07] VITALS: BP 104/60
--- NOTE | 2019-10-07 | NUR ---
10 UNITS IV INSULIN ADMINISTERED PER 'S ORDERS. BIPAP IN USE. WILL APPLY CONTINUOUS POX TO TELE PACK PER POLICY. PT DENIES ANY NEEDS AT THIS TIME. WILL MONITOR. CALL LIGHT IN REACH.
--- NOTE | 2019-10-07 03:00 | NUR ---
PT. OFF BIPAP PER RN.
[2019-10-07 07:14] LABS: BASO % 0.3 % (0.0-1.0); EOS # 0.1 10*3/uL (0.0-0.4); EOS % 0.4 % (1.0-4.0); HEMATOCRIT 42.7 % (42.0-52.0); HEMOGLOBIN 13.2 g/dl (14.0-18.0); LYMPH # 3.1 10*3/uL (1.3-4.4); LYMPH % 22.5 % (27.0-41.0); MEAN CELL VOLUME 97.5 fl (80.0-94.0); MEAN CORPUSCULAR HGB 30.1 pg (27.0-31.0); MEAN CORPUSCULAR HGB CONC 30.9 g/dl (33.0-37.0); MEAN PLATELET VOLUME 9.4 fl (9.6-12.3); MONO # 1.1 10*3/uL (0.1-1.0); NEUT # 9.2 10*3/uL (2.3-7.9); NEUT % 66.9 % (47.0-73.0); PLATELET COUNT AUTOMATED 293 10*3/uL (130-400); RED BLOOD COUNT 4.38 10*6/uL (4.50-5.90); RED CELL DISTRI WIDTH 14.3 % (0-14.5); WHITE BLOOD COUNT 13.8 10*3/uL (4.8-10.8)
[2019-10-07 07:24] LABS: ALBUMIN 2.7 gm/dl (3.1-4.5); ALKALINE PHOSPHATASE 99 U/L (45-117); BUN 28 mg/dl (7-24); CHLORIDE 98 mmol/L (98-107); POTASSIUM 4.7 mmol/L (3.5-5.1); SGOT/AST 12 IU/L (3-35); SGPT/ALT 36 U/L (12-78); SODIUM 135 mmol/L (136-145); TOTAL PROTEIN 7.4 gm/dL (6.4-8.2)
[2019-10-07 08:01] VITALS: BP 122/84
--- NOTE | 2019-10-07 09:00 | NUR ---
Medical Sociologist in to see patient. No new needs or request at this time. Dr. Ness is following. Decreasing dose of solumedrol. He denies any home needs. When medically stable he will be discharged to home.
[2019-10-07 12:00] VITALS: BP 102/81
[2019-10-07 16:00] VITALS: BP 103/56
--- NOTE | 2019-10-07 16:59 | NUR ---
Notified by systems protection technician HR was in 190's. Patient was assessed. He was eating his dinner with no signs of distress and child care associate read a HR of 93.
--- NOTE | 2019-10-07 18:38 | NUR ---
LEFT A MESSAGE WITH DR. SHIELDS REGARDING STAT GLUCOSE. AWAITING RESPONSE.
--- NOTE | 2019-10-07 19:42 | NUR ---
PT AWAKE SITTING UP IN CHAIR. BOXED LUNCH PROVIDED PER REQUEST. PT EDUCATED ABOUT LANTUS/BSG CHECKS AND S/S TO NOTIFY RN. VERBALIZES UNDERSTANDING. CONCHIS MATHUR OTHER NEEDS AT PRESENT TIME. WILL MONITOR. CALL LIGHT IN REACH.
[2019-10-07 20:00] VITALS: BP 101/52
--- NOTE | 2019-10-07 21:26 | NUR ---
BSG 476. STAT REFLEX ORDERED. AWAITING RESULT. DR TO BE NOTIFIED.
--- NOTE | 2019-10-07 22:07 | NUR ---
ATTEMPTED TO CALL REGARDING BSG OF 476. PER SLIDING SCALE, >450 ORDER STAT REFLEX AND CALL DR. RAMON 484 ON LABS. NO ANSWER FROM . WILL ATTEMPT AGAIN.
--- NOTE | 2019-10-07 22:13 | NUR ---
ATTEMPTED TO CALL AGAIN. NO ANSWER.
--- NOTE | 2019-10-07 22:42 | NUR ---
SPOKE TO . INSTRUCTED TO GET A STAT BMP AND GIVE 20 UNITS REGULAR INSULIN NOW.
--- NOTE | 2019-10-07 22:50 | NUR ---
LAB HERE TO DRAW STAT BMP. 20 UNITS HUMULIN GIVEN PER ' ORDER.
[2019-10-07 23:08] LABS: BUN 24 mg/dl (7-24); CHLORIDE 93 mmol/L (98-107); CREATININE 1.12 mg/dL (0.70-1.30); POTASSIUM 4.7 mmol/L (3.5-5.1); SODIUM 132 mmol/L (136-145)
[2019-10-08] VITALS: BP 116/64
--- NOTE | 2019-10-08 04:33 | NUR ---
PT TOOK BIPAP OFF AT THIS TIME. O2 APPLIED VIA 4L. WILL NOTIFY RESPIRATORY.
[2019-10-08 06:55] LABS: HEMATOCRIT 40.8 % (42.0-52.0); HEMOGLOBIN 12.4 g/dl (14.0-18.0); MEAN CELL VOLUME 97.1 fl (80.0-94.0); MEAN CORPUSCULAR HGB 29.5 pg (27.0-31.0); MEAN CORPUSCULAR HGB CONC 30.4 g/dl (33.0-37.0); MEAN PLATELET VOLUME 9.4 fl (9.6-12.3); PLATELET COUNT AUTOMATED 283 10*3/uL (130-400); RED CELL DISTRI WIDTH 14.2 % (0-14.5); WHITE BLOOD COUNT 12.7 10*3/uL (4.8-10.8)
[2019-10-08 06:58] LABS: ALBUMIN 2.6 gm/dl (3.1-4.5); ALKALINE PHOSPHATASE 93 U/L (45-117); BUN 22 mg/dl (7-24); CHLORIDE 96 mmol/L (98-107); CREATININE 0.87 mg/dL (0.70-1.30); POTASSIUM 4.2 mmol/L (3.5-5.1); SGOT/AST 9 IU/L (3-35); SGPT/ALT 33 U/L (12-78); SODIUM 136 mmol/L (136-145); TOTAL PROTEIN 6.8 gm/dL (6.4-8.2)
[2019-10-08 07:26] LABS: ATYPICAL LYMPHS 1 % (0-0); PLATELET SUFFICIENCY NORMAL (NORMAL); TOTAL CELLS COUNTED 100 #CELLS
[2019-10-08] MEDS ORDERED: Lantus SC (08:36)
[2019-10-08] MEDS ORDERED: PREDNISONE5 MG PO (08:36)
[2019-10-08] MEDS ORDERED: CIPROFLOXACIN250 MG PO (08:36)
[2019-10-08] MEDS ORDERED: FLOVENT HFA12 GM INH (08:37)
--- NOTE | 2019-10-08 10:35 | NUR ---
Discharge instructions reviewed with patient/family. Patient receptive and verbalizes understanding. Follow-up care arranged. Written instructions given to patient/family. Patient and spouse educated on new prescriptions and follow up appointments. Patient was wheeled by staff member from unit with and all personal belongings accounted for. JOSE HEAD
== END 2019-10-08 10:35 | disposition home or self-care (01) | DRG 291 ==
LOC: ICCU 11:37 → 4E 11:37 → ICCU 12:19 → 4E 10-06 13:18
PROVIDERS: Internal Medicine; Internal Medicine Critical Care Medicine; ADMIT Internal Medicine
PROC: 5A09357 Assistance with Respiratory Ventilation, Less than 24 Consecutive Hours, Continuous Positive Airway Pressure (ICD-10-PCS; principal; 2019-10-03)
PROC: 5A09357 Assistance with Respiratory Ventilation, Less than 24 Consecutive Hours, Continuous Positive Airway Pressure (ICD-10-PCS; 2019-10-04)
PROC: 5A09357 Assistance with Respiratory Ventilation, Less than 24 Consecutive Hours, Continuous Positive Airway Pressure (ICD-10-PCS; 2019-10-05)
PROC: 5A09357 Assistance with Respiratory Ventilation, Less than 24 Consecutive Hours, Continuous Positive Airway Pressure (ICD-10-PCS; 2019-10-06)
PROC: 5A09357 Assistance with Respiratory Ventilation, Less than 24 Consecutive Hours, Continuous Positive Airway Pressure (ICD-10-PCS; 2019-10-07)
PROC: 5A09357 Assistance with Respiratory Ventilation, Less than 24 Consecutive Hours, Continuous Positive Airway Pressure (ICD-10-PCS; 2019-10-08)
DX: I11.0 Hypertensive heart disease with heart failure (principal); I50.31 Acute diastolic (congestive) heart failure; J96.22 Acute and chronic respiratory failure with hypercapnia; J96.21 Acute and chronic respiratory failure with hypoxia; J44.1 Chronic obstructive pulmonary disease with (acute) exacerbation; J44.0 Chronic obstructive pulmonary disease with (acute) lower respiratory infection; F33.0 Major depressive disorder, recurrent, mild; E87.3 Alkalosis; J20.9 Acute bronchitis, unspecified; I25.10 Atherosclerotic heart disease of native coronary artery without angina pectoris; G47.33 Obstructive sleep apnea (adult) (pediatric); F17.210 Nicotine dependence, cigarettes, uncomplicated; M17.0 Bilateral primary osteoarthritis of knee; E11.65 Type 2 diabetes mellitus with hyperglycemia; T38.0X5A Adverse effect of glucocorticoids and synthetic analogues, initial encounter; E78.00 Pure hypercholesterolemia, unspecified; K21.9 Gastro-esophageal reflux disease without esophagitis; E66.01 Morbid (severe) obesity due to excess calories; Y92.89 Other specified places as the place of occurrence of the external cause; Z79.4 Long term (current) use of insulin; Z79.899 Other long term (current) drug therapy; Z88.6 Allergy status to analgesic agent; Z88.1 Allergy status to other antibiotic agents; Z88.8 Allergy status to other drugs, medicaments and biological substances; Z68.33 Body mass index [BMI] 33.0-33.9, adult

== ENCOUNTER → 2020-04-22 | Outpatient (CLI) | payer MEDICARE ==
[~2020-04-22] MED LIST changes: +ASPIRIN ADULT L81 M2 PO; +CIPROFLOXACIN250 MG PO; +DAILY VALUE1 EACH PO; +FLOVENT HFA12 GM INH; +Lantus SC
[2020-04-22 11:36] LABS: BASO % 0.4 % (0.0-1.0); EOS # 0.4 10*3/uL (0.0-0.4); EOS % 4.1 % (1.0-4.0); HEMATOCRIT 41.5 % (42.0-52.0); LYMPH # 2.4 10*3/uL (1.3-4.4); MEAN CELL VOLUME 96.7 fl (80.0-94.0); MEAN CORPUSCULAR HGB 30.3 pg (27.0-31.0); MEAN CORPUSCULAR HGB CONC 31.3 g/dl (33.0-37.0); MEAN PLATELET VOLUME 9.4 fl (9.6-12.3); MONO # 0.7 10*3/uL (0.1-1.0); MONO % 6.7 % (3.0-9.0); NEUT # 6.7 10*3/uL (2.3-7.9); NEUT % 65.5 % (47.0-73.0); PLATELET COUNT AUTOMATED 210 10*3/uL (130-400); RED BLOOD COUNT 4.29 10*6/uL (4.50-5.90); RED CELL DISTRI WIDTH 14.7 % (0-14.5); WHITE BLOOD COUNT 10.3 10*3/uL (4.8-10.8)
[2020-04-22 12:06] LABS: ALBUMIN 3.4 gm/dl (3.1-4.5); BUN 10 mg/dl (7-24); CHLORIDE 101 mmol/L (98-107); CHOLESTEROL 164 mg/dL (<200); CREATININE 0.91 mg/dL (0.70-1.30); POTASSIUM 4.1 mmol/L (3.5-5.1); SGOT/AST 15 IU/L (3-35); SGPT/ALT 34 U/L (12-78); SODIUM 138 mmol/L (136-145); TOTAL PROTEIN 7.6 gm/dL (6.4-8.2); TRIGLYCERIDES 181 mg/dl (<150); VLDL CHOLESTEROL 36 mg/dL (6-40)
[2020-04-22 12:11] LABS: ALKALINE PHOSPHATASE 79 U/L (45-117); FREE T4 0.97 ng/dl (0.76-1.46); HDL CHOLESTEROL 38 mg/dl (40-60); LDL CHOLESTEROL 90 mg/dL (9-159)
[2020-04-22 13:26] LABS: VITAMIN D, 25-HYDROXY 60.2 ng/mL (30-100)
== END | disposition home or self-care (01) ==
LOC: LAB 11:01
PROVIDERS: Internal Medicine
DX: Z12.31 Encounter for screening mammogram for malignant neoplasm of breast (principal); Z00.00 Encounter for general adult medical examination without abnormal findings; Z13.220 Encounter for screening for lipoid disorders; I10 Essential (primary) hypertension; E11.65 Type 2 diabetes mellitus with hyperglycemia; E55.9 Vitamin D deficiency, unspecified

== ENCOUNTER → 2020-06-12 | Outpatient (CLI) | payer MEDICARE ==
[2020-06-12 15:25] LABS: BUN 15 mg/dl (7-24); CHLORIDE 95 mmol/L (98-107); CREATININE 1.22 mg/dL (0.70-1.30); SODIUM 137 mmol/L (136-145)
== END | disposition home or self-care (01) ==
LOC: US 11:30 → LAB 14:21 → US 14:30
PROVIDERS: Internal Medicine
DX: J96.10 Chronic respiratory failure, unspecified whether with hypoxia or hypercapnia (principal); E11.9 Type 2 diabetes mellitus without complications; R42 Dizziness and giddiness

== ENCOUNTER → 2020-10-07 | Outpatient (CLI) | payer MEDICARE ==
[2020-10-07 12:19] LABS: BASO % 0.3 % (0.0-1.0); EOS # 0.5 10*3/uL (0.0-0.4); EOS % 3.5 % (1.0-4.0); HEMATOCRIT 42.1 % (42.0-52.0); LYMPH # 2.6 10*3/uL (1.3-4.4); LYMPH % 20.2 % (27.0-41.0); MEAN CORPUSCULAR HGB 30.4 pg (27.0-31.0); MEAN CORPUSCULAR HGB CONC 31.4 g/dl (33.0-37.0); MEAN PLATELET VOLUME 9.5 fl (9.6-12.3); MONO % 7.9 % (3.0-9.0); NEUT # 8.7 10*3/uL (2.3-7.9); NEUT % 67.5 % (47.0-73.0); PLATELET COUNT AUTOMATED 230 10*3/uL (130-400); RED BLOOD COUNT 4.34 10*6/uL (4.50-5.90); WHITE BLOOD COUNT 12.9 10*3/uL (4.8-10.8)
[2020-10-07 12:53] LABS: ALBUMIN 3.4 gm/dl (3.1-4.5); ALKALINE PHOSPHATASE 82 U/L (45-117); BUN 9 mg/dl (7-24); CHLORIDE 97 mmol/L (98-107); CHOLESTEROL 156 mg/dL (<200); CREATININE 1.08 mg/dL (0.70-1.30); HDL CHOLESTEROL 39 mg/dl (40-60); LDL CHOLESTEROL 72 mg/dL (9-159); SGOT/AST 38 IU/L (3-35); SGPT/ALT 23 U/L (12-78); SODIUM 137 mmol/L (136-145); TOTAL PROTEIN 8.2 gm/dL (6.4-8.2); TRIGLYCERIDES 223 mg/dl (<150); VLDL CHOLESTEROL 45 mg/dL (6-40)
== END | disposition home or self-care (01) ==
LOC: LAB 11:48
PROVIDERS: ATTEND Internal Medicine
DX: I10 Essential (primary) hypertension (principal); E11.9 Type 2 diabetes mellitus without complications; E78.2 Mixed hyperlipidemia; E55.9 Vitamin D deficiency, unspecified; Z00.00 Encounter for general adult medical examination without abnormal findings

== ENCOUNTER → 2021-06-24 | Outpatient (CLI) | payer MEDICARE | END | disposition home or self-care (01) | LOC: US 10:59 | PROVIDERS: ATTEND Internal Medicine Cardiovascular Disease | DX: I65.22 Occlusion and stenosis of left carotid artery (principal) ==

== ENCOUNTER → 2021-08-27 | Outpatient (CLI) | payer MEDICARE | END | disposition home or self-care (01) | LOC: COVID19 15:01 | PROVIDERS: ATTEND Internal Medicine | DX: Z11.52 Encounter for screening for COVID-19 (principal) ==

== ENCOUNTER → 2021-09-13 | Outpatient (CLI) | payer MEDICARE ==
[2021-09-13 11:12] LABS: BASO % 0.3 % (0.0-1.0); EOS # 0.8 10*3/uL (0.0-0.4); EOS % 6.3 % (1.0-4.0); HEMATOCRIT 35.7 % (42.0-52.0); LYMPH # 1.7 10*3/uL (1.3-4.4); LYMPH % 13.7 % (27.0-41.0); MEAN CELL VOLUME 106.6 fl (80.0-94.0); MEAN CORPUSCULAR HGB 33.1 pg (27.0-31.0); MEAN CORPUSCULAR HGB CONC 31.1 g/dl (33.0-37.0); MEAN PLATELET VOLUME 9.4 fl (9.6-12.3); MONO # 0.7 10*3/uL (0.1-1.0); MONO % 5.7 % (3.0-9.0); NEUT % 73.4 % (47.0-73.0); NUCLEATED RED BLOOD CELL 0.2 % (0.0-0.0); PLATELET COUNT AUTOMATED 257 10*3/uL (130-400); RED BLOOD COUNT 3.35 10*6/uL (4.50-5.90); RED CELL DISTRI WIDTH 15.1 % (0-14.5); WHITE BLOOD COUNT 12.3 10*3/uL (4.8-10.8)
[2021-09-13 11:27] LABS: ALKALINE PHOSPHATASE 87 U/L (45-117); BUN 13 mg/dl (7-24); CHLORIDE 100 mmol/L (98-107); CHOLESTEROL 153 mg/dL (<200); CREATININE 1.06 mg/dL (0.70-1.30); LDL CHOLESTEROL 91 mg/dL (9-159); POTASSIUM 4.4 mmol/L (3.5-5.1); SGOT/AST 9 IU/L (3-35); SGPT/ALT 21 U/L (12-78); SODIUM 138 mmol/L (136-145); TOTAL PROTEIN 7.6 gm/dL (6.4-8.2); TRIGLYCERIDES 149 mg/dl (<150)
[2021-09-13 12:08] LABS: VITAMIN D, 25-HYDROXY 52.4 ng/mL (30-100)
== END | disposition home or self-care (01) ==
LOC: US 08-30 16:00 → LAB 09:52
PROVIDERS: ATTEND Internal Medicine
DX: Z12.5 Encounter for screening for malignant neoplasm of prostate (principal); R42 Dizziness and giddiness; N17.9 Acute kidney failure, unspecified; I10 Essential (primary) hypertension; E11.9 Type 2 diabetes mellitus without complications; E55.9 Vitamin D deficiency, unspecified; E78.2 Mixed hyperlipidemia

== ENCOUNTER 2021-09-28 12:40 | Emergency (ER) | payer MEDICARE ==
[~2021-09-28] VITALS: Wt 113.4 kg
[2021-09-28 12:48] VITALS: BP 141/58
[2021-09-28] MEDS ORDERED: AMARYL4 MG PO (14:50)
[2021-09-28] MEDS ORDERED: TRAD5TAB1 PO (14:50)
[2021-09-28] MEDS ORDERED: Zaroxolyn,Diul2.5 MG PO (14:51)
[2021-09-28] MEDS ORDERED: LASIX40 MG PO (14:51)
[2021-09-28] MEDS ORDERED: LOPRESSOR50 M1 PO (14:52)
[2021-09-28] MEDS ORDERED: LANTUS SOL100 UNIT/1 SC ×2 (14:53→14:57)
[2021-09-28] MEDS ORDERED: LANTUS SOL100 UNIT/1 SQ (14:57)
[2021-09-28 15:06] LABS: BASO % 0.3 % (0.0-1.0); EOS # 0.4 10*3/uL (0.0-0.4); EOS % 3.4 % (1.0-4.0); HEMATOCRIT 35.3 % (42.0-52.0); LYMPH # 1.7 10*3/uL (1.3-4.4); LYMPH % 14.1 % (27.0-41.0); MEAN CELL VOLUME 104.7 fl (80.0-94.0); MEAN CORPUSCULAR HGB CONC 30.6 g/dl (33.0-37.0); MEAN PLATELET VOLUME 9.5 fl (9.6-12.3); MONO # 0.8 10*3/uL (0.1-1.0); MONO % 6.8 % (3.0-9.0); NEUT # 8.8 10*3/uL (2.3-7.9); NEUT % 74.7 % (47.0-73.0); PLATELET COUNT AUTOMATED 278 10*3/uL (130-400); RED BLOOD COUNT 3.37 10*6/uL (4.50-5.90); RED CELL DISTRI WIDTH 15.3 % (0-14.5); WHITE BLOOD COUNT 11.8 10*3/uL (4.8-10.8)
[2021-09-28 15:10] VITALS: BP 142/60
[2021-09-28 15:17] LABS: ACT PARTIAL THROMBO TIME 25.6 SECONDS (20.0-32.1)
[2021-09-28 15:20] LABS: ALBUMIN 3.1 gm/dl (3.1-4.5); CREATININE 1.45 mg/dL (0.70-1.30); POTASSIUM 3.9 mmol/L (3.5-5.1); TOTAL PROTEIN 8.1 gm/dL (6.4-8.2)
[2021-09-28 17:23] VITALS: BP 140/68
== END 2021-09-28 20:15 | disposition left against medical advice (07) ==
LOC: ED 12:40 → EDHOLD 20:07 → ED 20:07
PROVIDERS: Emergency Medicine
DX: L03.115 Cellulitis of right lower limb (principal)

== ENCOUNTER → 2022-03-09 | Outpatient (CLI) | payer MEDICARE ==
[~2022-03-09] MED LIST changes: +AMARYL4 MG PO; +LANTUS SOL100 UNIT/1 SC; +LASIX40 MG PO; +LOPRESSOR50 M1 PO; +TRAD5TAB1 PO; +Zaroxolyn,Diul2.5 MG PO
[2022-03-09 13:16] LABS: HEMATOCRIT 31.9 % (42.0-52.0); MEAN CELL VOLUME 97.3 fl (80.0-94.0); MEAN CORPUSCULAR HGB 30.5 pg (27.0-31.0); MEAN CORPUSCULAR HGB CONC 31.3 g/dl (33.0-37.0); MEAN PLATELET VOLUME 9.5 fl (9.6-12.3); PLATELET COUNT AUTOMATED 358 10*3/uL (130-400); RED BLOOD COUNT 3.28 10*6/uL (4.50-5.90); RED CELL DISTRI WIDTH 15.8 % (0-14.5); WHITE BLOOD COUNT 11.3 10*3/uL (4.8-10.8)
[2022-03-09 13:19] LABS: MANUAL DIFF REFLEX YES
[2022-03-09 13:36] LABS: ALKALINE PHOSPHATASE 125 U/L (45-117); ATYPICAL LYMPHS 3 % (0-0); BASOPHILS 1 % (0-1); BUN 12 mg/dl (7-24); CHLORIDE 93 mmol/L (98-107); CHOLESTEROL 145 mg/dL (<200); CREATININE 1.15 mg/dL (0.70-1.30); LDL CHOLESTEROL 57 mg/dL (9-159); PLATELET SUFFICIENCY NORMAL (NORMAL); POLYCHROMASIA SLIGHT; POTASSIUM 4.2 mmol/L (3.5-5.1); SGOT/AST 10 IU/L (3-35); SGPT/ALT 26 U/L (12-78); SODIUM 134 mmol/L (136-145); TOTAL CELLS COUNTED 100 #CELLS; TRIGLYCERIDES 278 mg/dl (<150)
[2022-03-09 13:37] LABS: ROULEAUX SLIGHT; STOMATOCYTE FEW
== END | disposition home or self-care (01) ==
LOC: LAB 12:47
PROVIDERS: ATTEND Family Medicine
DX: I11.9 Hypertensive heart disease without heart failure (principal); E11.49 Type 2 diabetes mellitus with other diabetic neurological complication; Z79.4 Long term (current) use of insulin; N17.9 Acute kidney failure, unspecified; I25.10 Atherosclerotic heart disease of native coronary artery without angina pectoris; J18.9 Pneumonia, unspecified organism; J44.9 Chronic obstructive pulmonary disease, unspecified; E78.2 Mixed hyperlipidemia; I50.9 Heart failure, unspecified; Z79.899 Other long term (current) drug therapy

== ENCOUNTER 2022-06-10 13:51 | Inpatient (IN) | payer MEDICARE ==
[~2022-06-10] VITALS: Ht 175.2 cm; Wt 102.6 kg
[2022-06-10 13:55] VITALS: BP 123/61
[2022-06-10 14:16] LABS: BASO % 0.4 % (0.0-1.0); EOS % 0.4 % (1.0-4.0); HEMATOCRIT 35.2 % (42.0-52.0); LYMPH # 1.2 10*3/uL (1.3-4.4); LYMPH % 12.3 % (27.0-41.0); MEAN CELL VOLUME 96.7 fl (80.0-94.0); MEAN CORPUSCULAR HGB 31.3 pg (27.0-31.0); MEAN CORPUSCULAR HGB CONC 32.4 g/dl (33.0-37.0); MEAN PLATELET VOLUME 9.9 fl (9.6-12.3); MONO # 0.6 10*3/uL (0.1-1.0); NEUT # 7.8 10*3/uL (2.3-7.9); NEUT % 80.1 % (47.0-73.0); PLATELET COUNT AUTOMATED 238 10*3/uL (130-400); RED BLOOD COUNT 3.64 10*6/uL (4.50-5.90); RED CELL DISTRI WIDTH 15.9 % (0-14.5); WHITE BLOOD COUNT 9.7 10*3/uL (4.8-10.8)
[2022-06-10 14:30] LABS: CREATININE 1.56 mg/dL (0.70-1.30); POTASSIUM 3.9 mmol/L (3.5-5.1); TOTAL PROTEIN 8.4 gm/dL (6.4-8.2)
[2022-06-10 18:01] VITALS: BP 110/64
[2022-06-10 19:23] VITALS: BP 142/81
[2022-06-10 20:15] VITALS: BP 150/64
[2022-06-10 20:55] VITALS: BP 131/75
[2022-06-10] MEDS ORDERED: LOPRESSOR25 MG PO (21:45)
[2022-06-10] MEDS ORDERED: LIPITOR20 MG PO (21:46)
[2022-06-10] MEDS ORDERED: NEURONTIN300 MG PO (21:59)
[2022-06-10] MEDS ORDERED: ADMELOG100 UNIT/1 SQ (22:02)
[2022-06-11] VITALS: BP 146/69
[2022-06-11 06:13] LABS: CREATININE 1.45 mg/dL (0.70-1.30); POTASSIUM 3.7 mmol/L (3.5-5.1); TOTAL PROTEIN 8.5 gm/dL (6.4-8.2)
[2022-06-11 06:24] LABS: BASO % 0.4 % (0.0-1.0); EOS # 0.2 10*3/uL (0.0-0.4); EOS % 3.2 % (1.0-4.0); HEMATOCRIT 35.3 % (42.0-52.0); LYMPH # 0.8 10*3/uL (1.3-4.4); MEAN CELL VOLUME 98.6 fl (80.0-94.0); MEAN CORPUSCULAR HGB 30.7 pg (27.0-31.0); MEAN CORPUSCULAR HGB CONC 31.2 g/dl (33.0-37.0); MEAN PLATELET VOLUME 10.3 fl (9.6-12.3); MONO # 0.5 10*3/uL (0.1-1.0); NEUT % 78.7 % (47.0-73.0); PLATELET COUNT AUTOMATED 225 10*3/uL (130-400); RED BLOOD COUNT 3.58 10*6/uL (4.50-5.90); RED CELL DISTRI WIDTH 15.9 % (0-14.5); WHITE BLOOD COUNT 7.6 10*3/uL (4.8-10.8)
[2022-06-11 08:00] VITALS: BP 129/60
[2022-06-11 12:00] VITALS: BP 153/82
== END 2022-06-11 13:10 | disposition home or self-care (01) | DRG 683 ==
LOC: ED 13:51 → EDHOLD 16:31 → 4E 18:41
PROVIDERS: Emergency Medicine; Student in an Organized Health Care Education/Training Program; ADMIT Internal Medicine; ATTEND Internal Medicine
DX: N17.0 Acute kidney failure with tubular necrosis (principal); E44.0 Moderate protein-calorie malnutrition; I50.32 Chronic diastolic (congestive) heart failure; J44.9 Chronic obstructive pulmonary disease, unspecified; K21.9 Gastro-esophageal reflux disease without esophagitis; D64.9 Anemia, unspecified; E66.9 Obesity, unspecified; E11.65 Type 2 diabetes mellitus with hyperglycemia; I11.0 Hypertensive heart disease with heart failure; E78.5 Hyperlipidemia, unspecified; Z88.6 Allergy status to analgesic agent; Z88.1 Allergy status to other antibiotic agents; Z88.8 Allergy status to other drugs, medicaments and biological substances; Z82.49 Family history of ischemic heart disease and other diseases of the circulatory system; Z95.5 Presence of coronary angioplasty implant and graft; Z68.33 Body mass index [BMI] 33.0-33.9, adult

== ENCOUNTER → 2022-10-05 | Outpatient (CLI) | payer MEDICARE ==
[~2022-10-05] MED LIST changes: +ADMELOG100 UNIT/1 SQ; +LIPITOR20 MG PO; +LOPRESSOR25 MG PO; +NEURONTIN300 MG PO
[2022-10-05 11:26] LABS: BILIRUBIN Negative (Negative); BLOOD Negative (Negative); CLARITY Clear (Clear); COLOR Yellow (Yellow); GLUCOSE 3+ (Negative); KETONE Negative (Negative); LEUKO ESTERASE Negative (Negative); NITRITE Negative (Negative); UROBILINOGEN 0.2 E.U./dl (0.0-1.0)
[2022-10-05 11:39] LABS: BACTERIA TRACE
[2022-10-05 11:40] LABS: RBC 0-2 rbc/hpf (0-2)
[2022-10-05 11:40] LABS: CREATININE 1.45 mg/dL (0.70-1.30); FREE T4 1.08 ng/dl (0.89-1.76); POTASSIUM 3.6 mmol/L (3.4-5.1); THYROID STIM HORMONE (HS) 2.556 uIU/ml (0.550-4.780); TOTAL PROTEIN 8.1 gm/dL (6.0-8.0)
== END | disposition home or self-care (01) ==
LOC: LAB 10:35
PROVIDERS: ATTEND Internal Medicine
DX: E11.65 Type 2 diabetes mellitus with hyperglycemia (principal); E78.5 Hyperlipidemia, unspecified; E55.9 Vitamin D deficiency, unspecified; E04.9 Nontoxic goiter, unspecified

== ENCOUNTER → 2023-01-25 | Outpatient (CLI) | payer MEDICARE ==
[~2023-01-25] MED LIST changes: +FARXIGA10 M1 PO; +FOLBEE TABLET1 EACH PO; +JARDIANCE10 MG PO; +LIPITOR80 MG PO; +OMNICEF300 MG PO; +OZEMPIC2 MG/0.71 SQ; +ZITHROMAX250 MG PO
[2023-01-25 10:27] LABS: BILIRUBIN Negative (Negative); BLOOD Negative (Negative); CLARITY Clear (Clear); COLOR Yellow (Yellow); GLUCOSE 3+ (Negative); KETONE Negative (Negative); LEUKO ESTERASE Negative (Negative); NITRITE Negative (Negative); PH 5.5 (4.5-8.0); SPECIFIC GRAVITY 1.015 (1.001-1.030); UROBILINOGEN 0.2 E.U./dl (0.0-1.0)
[2023-01-25 13:53] LABS: POTASSIUM 3.8 mmol/L (3.4-5.1); THYROID STIM HORMONE (HS) 2.501 uIU/ml (0.550-4.780); TOTAL PROTEIN 7.9 gm/dL (6.0-8.0)
== END | disposition home or self-care (01) ==
LOC: LAB 09:51
PROVIDERS: ATTEND Internal Medicine
DX: E11.65 Type 2 diabetes mellitus with hyperglycemia (principal); E04.9 Nontoxic goiter, unspecified; E55.9 Vitamin D deficiency, unspecified; E78.5 Hyperlipidemia, unspecified

== ENCOUNTER → 2023-05-09 | Outpatient (CLI) | payer MEDICARE | END | disposition home or self-care (01) | LOC: MRI 00:13 | PROVIDERS: ATTEND Specialist | DX: I67.82 Cerebral ischemia (principal); R27.0 Ataxia, unspecified ==

== ENCOUNTER → 2023-07-12 | Outpatient (CLI) | payer MEDICARE ==
[2023-07-12 09:37] LABS: BILIRUBIN Negative (Negative); BLOOD Negative (Negative); CLARITY Clear (Clear); COLOR Yellow (Yellow); GLUCOSE 3+ (Negative); KETONE Negative (Negative); LEUKO ESTERASE Negative (Negative); NITRITE Negative (Negative); PH 5.5 (4.5-8.0); SPECIFIC GRAVITY 1.015 (1.001-1.030); UROBILINOGEN 0.2 E.U./dl (0.0-1.0)
[2023-07-12 10:01] LABS: ALKALINE PHOSPHATASE 68 U/L (46-116); BUN 18 mg/dl (9-23); CHLORIDE 100 mmol/L (98-107); CHOLESTEROL 112 mg/dL (<200); LDL CHOLESTEROL 62 mg/dL (9-159); POTASSIUM 3.9 mmol/L (3.4-5.1); SGPT/ALT 12 U/L (10-49); TOTAL PROTEIN 7.8 gm/dL (6.0-8.0); TRIGLYCERIDES 107 mg/dl (<150)
[2023-07-12 10:07] LABS: VITAMIN D, 25-HYDROXY 32.7 ng/mL (30-100)
[2023-07-12 10:59] LABS: EPITHELIAL CELLS 0-2; MUCOUS TRACE
== END | disposition home or self-care (01) ==
LOC: LAB 08:55
PROVIDERS: ATTEND Internal Medicine
DX: E55.9 Vitamin D deficiency, unspecified (principal); E11.65 Type 2 diabetes mellitus with hyperglycemia; G62.9 Polyneuropathy, unspecified; E04.9 Nontoxic goiter, unspecified; E78.5 Hyperlipidemia, unspecified

== ENCOUNTER → 2023-11-30 | Outpatient (CLI) | payer MEDICARE ==
[2023-11-30 12:54] LABS: BILIRUBIN Negative (Negative); BLOOD Negative (Negative); CLARITY Clear (Clear); COLOR Yellow (Yellow); GLUCOSE 3+ (Negative); KETONE Negative (Negative); LEUKO ESTERASE Negative (Negative); NITRITE Negative (Negative); PH 6.5 (4.5-8.0)
[2023-11-30 13:07] LABS: BACTERIA TRACE; EPITHELIAL CELLS 0-2; MUCOUS TRACE; RBC 0-2 rbc/hpf (0-2); WBC 0-2 wbc/hpf (0-5)
[2023-11-30 13:12] LABS: ALKALINE PHOSPHATASE 69 U/L (46-116); BUN 16 mg/dl (9-23); CHLORIDE 100 mmol/L (98-107); CHOLESTEROL 124 mg/dL (<200); LDL CHOLESTEROL 67 mg/dL (9-159); POTASSIUM 3.8 mmol/L (3.4-5.1); SGPT/ALT 14 U/L (5-49); TOTAL PROTEIN 8.2 gm/dL (6.0-8.0); TRIGLYCERIDES 135 mg/dl (<150)
[2023-11-30 13:30] LABS: VITAMIN D, 25-HYDROXY 42.4 ng/mL (30-100)
== END | disposition home or self-care (01) ==
LOC: LAB 12:23
PROVIDERS: ATTEND Internal Medicine
DX: E11.9 Type 2 diabetes mellitus without complications (principal); G62.9 Polyneuropathy, unspecified; E04.9 Nontoxic goiter, unspecified; E55.9 Vitamin D deficiency, unspecified; E78.5 Hyperlipidemia, unspecified

== ENCOUNTER 2024-01-04 20:22 | Inpatient (IN) | payer MEDICARE ==
[~2024-01-04] VITALS: Ht 175.2 cm; Wt 100.8 kg
[~2024-01-04 20:22] MED LIST changes: +DEXAMETHASONE6 MG PO; +DOXYCYCLINE HY100 M3 PO
[2024-01-04 20:23] VITALS: BP 97/48
[2024-01-04 20:51] LABS: BASO % 0.4 % (0.0-1.0); EOS # 0.6 10*3/uL (0.0-0.4); EOS % 8.3 % (1.0-4.0); HEMATOCRIT 38.3 % (42.0-52.0); LYMPH # 1.1 10*3/uL (1.3-4.4); MEAN CELL VOLUME 100.3 fl (80.0-94.0); MEAN CORPUSCULAR HGB 30.6 pg (27.0-31.0); MEAN CORPUSCULAR HGB CONC 30.5 g/dl (33.0-37.0); MONO # 0.8 10*3/uL (0.1-1.0); MONO % 10.3 % (3.0-9.0); NEUT # 4.8 10*3/uL (2.3-7.9); NEUT % 64.5 % (47.0-73.0); PLATELET COUNT AUTOMATED 469 10*3/uL (130-400); RED BLOOD COUNT 3.82 10*6/uL (4.50-5.90); RED CELL DISTRI WIDTH 16.5 % (0-14.5); WHITE BLOOD COUNT 7.5 10*3/uL (4.8-10.8)
[2024-01-04 21:06] LABS: BUN 16 mg/dl (9-23); CHLORIDE 94 mmol/L (98-107); LIPASE 36 U/L (12-53); POTASSIUM 3.9 mmol/L (3.4-5.1)
[2024-01-04 21:28] VITALS: BP 98/56
[2024-01-04] MEDS ORDERED: AZITHROMYCIN 250 ML IV ONE (21:45)
[2024-01-04] MEDS ORDERED: methylPREDNISolone sod succ 125 MG VIAL IV ONE (21:45)
[2024-01-04] MEDS ORDERED: Ceftriaxone Sodium 1 GM/10 ML SYR IV ONE (21:45)
[2024-01-04] MEDS ORDERED: ACETAMINOPHEN 325 MG TAB PO ONE (22:10)
[2024-01-04 22:18] VITALS: BP 117/60
[2024-01-04] MEDS ORDERED: SODIUM CHLORIDE 0.9% 1,000 ML IV SCH (22:25)
[2024-01-04 22:56] VITALS: BP 98/51
[2024-01-04 23:32] VITALS: BP 103/48
[2024-01-04] MEDS ORDERED: Ondansetron Hydrochloride 4 MG/2 ML VIAL IV PRN (23:45)
[2024-01-04] MEDS ORDERED: Magnesium Hydroxide 30 ML UDC PO PRN (23:45)
[2024-01-04] MEDS ORDERED: BISACODYL 10 MG SUPP R PRN (23:45)
[2024-01-04] MEDS ORDERED: ACETAMINOPHEN 325 MG TAB PO PRN (23:45)
[2024-01-04] MEDS ORDERED: MORPHINE Sulfate 2 MG/ML SYR IV PRN (23:45)
[2024-01-04] MEDS ORDERED: Acetaminophen/Hydrocodone 5 MG/325 MG TABLET PO PRN (23:45)
[2024-01-04] MEDS ORDERED: BISACODYL 5 MG TAB PO PRN (23:45)
[2024-01-04] MEDS ORDERED: TEMAZEPAM 15 MG CAP PO PRN (23:45)
[2024-01-04] MEDS ORDERED: Pantoprazole Sodium 40 MG TAB PO PRN (23:50)
[2024-01-04] MEDS ORDERED: DEXTROSE 10 % IN WATER 250 ML IV PRN (23:55)
[2024-01-05] VITALS (9 sets, daily range): BP systolic 91–119; BP diastolic 43–60
[2024-01-05] MEDS ORDERED: BACITRACIN OPH SCH
[2024-01-05] MEDS ORDERED: POLYMYXIN B OPH SCH
[2024-01-05] MEDS ORDERED: DEXTROSE 10 % IN WATER 250 ML IV PRN (00:20)
[2024-01-05 00:51] LABS: BILIRUBIN Negative (Negative); BLOOD Negative (Negative); CLARITY Clear (Clear); COLOR Yellow (Yellow); GLUCOSE 3+ (Negative); KETONE Trace (Negative); LEUKO ESTERASE Negative (Negative); NITRITE Negative (Negative); SPECIFIC GRAVITY 1.025 (1.001-1.030)
[2024-01-05] MEDS ORDERED: Lopressor25 MG PO (00:59)
[2024-01-05] MEDS ORDERED: FENOFIBRATE145 M1 PO (01:00)
[2024-01-05] MEDS ORDERED: ONE DAILY COMP1 EACH PO (01:03)
[2024-01-05] MEDS ORDERED: GOOD NEIGHBOR M25 M1 PO (01:04)
[2024-01-05] MEDS ORDERED: DULCOLAX STOOL100 M1 PO (01:05)
[2024-01-05] MEDS ORDERED: SPIRIVA 5 CAPS18 MCG INH (01:07)
[2024-01-05] MEDS ORDERED: OZEMPIC1 MG/0.71 SQ (01:08)
[2024-01-05] MEDS ORDERED: ADMELOG SO100 UNIT/1 SQ (01:11)
[2024-01-05 01:31] LABS: WBC 0-2 wbc/hpf (0-5)
[2024-01-05 05:48] LABS: ALKALINE PHOSPHATASE 45 U/L (46-116); BUN 17 mg/dl (9-23); CHLORIDE 101 mmol/L (98-107); FREE T4 1.01 ng/dl (0.89-1.76); POTASSIUM 4.4 mmol/L (3.4-5.1); SGPT/ALT 17 U/L (5-49); TOTAL PROTEIN 6.7 gm/dL (6.0-8.0)
[2024-01-05 06:13] LABS: BASO % 0.3 % (0.0-1.0); EOS % 0.2 % (1.0-4.0); HEMATOCRIT 35.9 % (42.0-52.0); LYMPH # 0.6 10*3/uL (1.3-4.4); MEAN CELL VOLUME 101.1 fl (80.0-94.0); MEAN CORPUSCULAR HGB 31.8 pg (27.0-31.0); MEAN CORPUSCULAR HGB CONC 31.5 g/dl (33.0-37.0); MEAN PLATELET VOLUME 9.6 fl (9.6-12.3); MONO # 0.1 10*3/uL (0.1-1.0); MONO % 1.9 % (3.0-9.0); NEUT # 4.9 10*3/uL (2.3-7.9); NEUT % 84.9 % (47.0-73.0); PLATELET COUNT AUTOMATED 440 10*3/uL (130-400); RED BLOOD COUNT 3.55 10*6/uL (4.50-5.90); RED CELL DISTRI WIDTH 16.6 % (0-14.5); WHITE BLOOD COUNT 5.7 10*3/uL (4.8-10.8)
[2024-01-05] MEDS ORDERED: INSULIN LISPRO 1 UNIT/0.01 ML SQ SCH ×2 (07:30)
[2024-01-05] MEDS ORDERED: Doxycycline Hyclate 100 MG in SODIUM CHLORIDE 0.9% 250 ML IV SCH (10:00)
[2024-01-05] MEDS ORDERED: Enoxaparin Sodium 40 MG/0.4 ML SYR SC SCH (10:00)
[2024-01-05] MEDS ORDERED: GUAIFENESIN 600 MG TAB ER PO SCH (10:00)
[2024-01-05] MEDS ORDERED: AZITHROMYCIN 250 ML IV SCH (10:00)
[2024-01-05] MEDS ORDERED: methylPREDNISolone sod succ 40 MG VIAL IV SCH (13:50)
[2024-01-05] MEDS ORDERED: GABAPENTIN 300 MG CAP PO SCH (14:00)
[2024-01-05] MEDS ORDERED: FUROSEMIDE 40 MG TAB PO SCH (18:00)
[2024-01-05] MEDS ORDERED: HYDROCORTISONE 1% CREAM 14.2 GM TUBE T SCH (18:00)
[2024-01-05] MEDS ORDERED: ATORVASTATIN CALCIUM 80 MG TAB PO SCH (22:00)
[2024-01-05] MEDS ORDERED: Metoprolol Tartrate 25 MG TAB PO SCH (22:00)
[2024-01-05] MEDS ORDERED: Insulin Glargine, Recombinan 1 UNIT/0.01 ML SC SCH (22:00)
[2024-01-06] VITALS: BP 124/70
[2024-01-06 08:00] VITALS: BP 113/67
[2024-01-06] MEDS ORDERED: Clopidogrel Hydrogen Sulfate 75 MG TAB PO SCH (10:00)
[2024-01-06] MEDS ORDERED: IPRATROPIUM BROMIDE 0.5 MG/2.5 ML AMP NEB SCH (10:00)
[2024-01-06] MEDS ORDERED: FENOFIBRATE 145 MG TAB PO SCH (10:00)
[2024-01-06] MEDS ORDERED: ASPIRIN ENTERIC COATED 81 MG TAB PO SCH (10:00)
[2024-01-06] MEDS ORDERED: Cholecalciferol 2,000 UNIT TABLET (50 MCG) PO SCH (10:00)
[2024-01-06 12:00] VITALS: BP 108/61
[2024-01-06] MEDS ORDERED: VIBRAMYCIN HYC100 MG PO (13:22)
[2024-01-06] MEDS ORDERED: TACROLIMUS30 G1 T (13:22)
[2024-01-06] MEDS ORDERED: MUCUS RELIEF600 MG PO (13:22)
[2024-01-06] MEDS ORDERED: TACROLIMUS T SCH (22:00)
== END 2024-01-06 14:07 | disposition home health service (06) | DRG 871 ==
LOC: ED 20:22 → EDHOLD 22:52 → 5E 22:52 → EDHOLD 01-05 00:03 → 5E 01-05 07:38
PROVIDERS: Internal Medicine; Student in an Organized Health Care Education/Training Program; ADMIT Internal Medicine; ATTEND Internal Medicine
DX: A41.9 Sepsis, unspecified organism (principal); J15.69 Pneumonia due to other Gram-negative bacteria; J96.01 Acute respiratory failure with hypoxia; N17.0 Acute kidney failure with tubular necrosis; J44.0 Chronic obstructive pulmonary disease with (acute) lower respiratory infection; J44.1 Chronic obstructive pulmonary disease with (acute) exacerbation; E87.1 Hypo-osmolality and hyponatremia; Z20.822 Contact with and (suspected) exposure to COVID-19; I25.10 Atherosclerotic heart disease of native coronary artery without angina pectoris; E55.9 Vitamin D deficiency, unspecified; K21.9 Gastro-esophageal reflux disease without esophagitis; E78.5 Hyperlipidemia, unspecified; I10 Essential (primary) hypertension; E11.65 Type 2 diabetes mellitus with hyperglycemia; W18.30XA Fall on same level, unspecified, initial encounter; D53.9 Nutritional anemia, unspecified; H10.9 Unspecified conjunctivitis; L40.9 Psoriasis, unspecified; R65.20 Severe sepsis without septic shock; Z88.6 Allergy status to analgesic agent; Z88.0 Allergy status to penicillin; Z88.8 Allergy status to other drugs, medicaments and biological substances; Z79.4 Long term (current) use of insulin; Z79.84 Long term (current) use of oral hypoglycemic drugs; Z79.82 Long term (current) use of aspirin; Z95.5 Presence of coronary angioplasty implant and graft; Z87.891 Personal history of nicotine dependence; Z82.49 Family history of ischemic heart disease and other diseases of the circulatory system; Z83.3 Family history of diabetes mellitus; Z80.9 Family history of malignant neoplasm, unspecified; Y93.89 Activity, other specified; Y92.89 Other specified places as the place of occurrence of the external cause; Y99.8 Other external cause status

== ENCOUNTER → 2024-06-18 | Outpatient (CLI) | payer MEDICARE ==
[~2024-06-18] MED LIST changes: +ADMELOG SO100 UNIT/1 SQ; +ALDACTONE25 MG PO; +DULCOLAX STOOL100 M1 PO; +FENOFIBRATE145 M1 PO; +GOOD NEIGHBOR M25 M1 PO; -JARDIANCE10 MG PO; +JARDIANCE25 MG PO; +Lopressor25 MG PO; +MUCUS RELIEF600 MG PO; +ONE DAILY COMP1 EACH PO; +OZEMPIC1 MG/0.71 SQ; +SPIRIVA 5 CAPS18 MCG INH; +TACROLIMUS30 G1 T; +VIBRAMYCIN HYC100 MG PO
[2024-06-18 11:42] LABS: BILIRUBIN Negative (Negative); BLOOD Negative (Negative); CLARITY Clear (Clear); COLOR Yellow (Yellow); GLUCOSE 3+ (Negative); KETONE Negative (Negative); LEUKO ESTERASE Negative (Negative); NITRITE Negative (Negative); PH 5.5 (4.5-8.0); UROBILINOGEN 0.2 E.U./dl (0.0-1.0)
[2024-06-18 12:25] LABS: VITAMIN D, 25-HYDROXY 32.5 ng/mL (30-100)
[2024-06-18 12:26] LABS: ALKALINE PHOSPHATASE 81 U/L (46-116); BUN 17 mg/dl (9-23); CHLORIDE 98 mmol/L (98-107); CHOLESTEROL 146 mg/dL (<200); LDL CHOLESTEROL 64 mg/dL (9-159); POTASSIUM 3.5 mmol/L (3.4-5.1); SGPT/ALT 20 U/L (5-49); TOTAL PROTEIN 7.4 gm/dL (6.0-8.0); TRIGLYCERIDES 268 mg/dl (<150)
[2024-06-18 13:40] LABS: WBC 0-2 wbc/hpf (0-5)
== END | disposition home or self-care (01) ==
LOC: LAB 11:07
PROVIDERS: ATTEND Internal Medicine
DX: E11.9 Type 2 diabetes mellitus without complications (principal); G62.9 Polyneuropathy, unspecified; E55.9 Vitamin D deficiency, unspecified; E04.9 Nontoxic goiter, unspecified; E78.5 Hyperlipidemia, unspecified

== ENCOUNTER → 2024-12-06 | Outpatient (CLI) | payer MEDICARE ==
[2024-12-06 14:19] LABS: BILIRUBIN Negative (Negative); BLOOD Negative (Negative); CLARITY Clear (Clear); COLOR Yellow (Yellow); GLUCOSE 3+ (Negative); KETONE Negative (Negative); LEUKO ESTERASE Negative (Negative); NITRITE Negative (Negative); UROBILINOGEN 0.2 E.U./dl (0.0-1.0)
[2024-12-06 14:39] LABS: RBC 0-2 rbc/hpf (0-2)
[2024-12-06 14:44] LABS: ALKALINE PHOSPHATASE 64 U/L (46-116); BUN 17 mg/dl (9-23); CHLORIDE 97 mmol/L (98-107); CHOLESTEROL 107 mg/dL (<200); LDL CHOLESTEROL 53 mg/dL (9-159); POTASSIUM 3.8 mmol/L (3.4-5.1); SGPT/ALT 20 U/L (5-49); TOTAL PROTEIN 8.1 gm/dL (6.0-8.0); TRIGLYCERIDES 123 mg/dl (<150)
== END | disposition home or self-care (01) ==
LOC: LAB 13:01
PROVIDERS: ATTEND Internal Medicine
DX: E11.9 Type 2 diabetes mellitus without complications (principal); E78.5 Hyperlipidemia, unspecified; E55.9 Vitamin D deficiency, unspecified; G62.9 Polyneuropathy, unspecified; E04.9 Nontoxic goiter, unspecified

== ENCOUNTER → 2025-04-03 | Outpatient (CLI) | payer OTHER ==
[2025-04-03 09:48] LABS: BILIRUBIN Negative (Negative); BLOOD Negative (Negative); CLARITY Clear (Clear); COLOR Yellow (Yellow); GLUCOSE 3+ (Negative); KETONE Negative (Negative); LEUKO ESTERASE Negative (Negative); NITRITE Negative (Negative); PH 5.5 (4.5-8.0); UROBILINOGEN 0.2 E.U./dl (0.0-1.0)
[2025-04-03 10:35] LABS: ALKALINE PHOSPHATASE 64 U/L (46-116); BUN 24 mg/dl (9-23); CHLORIDE 96 mmol/L (98-107); CHOLESTEROL 113 mg/dL (<200); LDL CHOLESTEROL 60 mg/dL (9-159); SGPT/ALT 19 U/L (5-49); TOTAL PROTEIN 7.7 gm/dL (6.0-8.0); TRIGLYCERIDES 124 mg/dl (<150)
[2025-04-03 10:36] LABS: VITAMIN D, 25-HYDROXY 48.7 ng/mL (30-100)
== END | disposition home or self-care (01) ==
LOC: LAB 08:45
PROVIDERS: ATTEND Internal Medicine
DX: E11.9 Type 2 diabetes mellitus without complications (principal); E78.5 Hyperlipidemia, unspecified; G62.9 Polyneuropathy, unspecified

== ENCOUNTER → 2025-04-15 | Outpatient (CLI) | payer OTHER ==
[2025-04-15 12:53] LABS: ALKALINE PHOSPHATASE 57 U/L (46-116); BUN 22 mg/dl (9-23); CHLORIDE 98 mmol/L (98-107); POTASSIUM 3.8 mmol/L (3.4-5.1); SGPT/ALT 15 U/L (5-49); TOTAL PROTEIN 7.6 gm/dL (6.0-8.0)
== END | disposition home or self-care (01) ==
LOC: LAB 11:52
PROVIDERS: Student in an Organized Health Care Education/Training Program; ATTEND Family Medicine
DX: J84.9 Interstitial pulmonary disease, unspecified (principal); R09.89 Other specified symptoms and signs involving the circulatory and respiratory systems; R60.0 Localized edema

== ENCOUNTER → 2025-08-28 | Outpatient (CLI) | payer OTHER ==
[2025-08-28 10:57] LABS: BASO # 0.1 10*3/uL (0.0-0.1); BASO % 0.5 % (0.0-1.0); EOS # 0.8 10*3/uL (0.0-0.4); EOS % 6.4 % (1.0-4.0); MEAN CELL VOLUME 103.3 fl (80.0-94.0); MEAN CORPUSCULAR HGB 32.0 pg (27.0-31.0); MEAN PLATELET VOLUME 10.4 fl (9.6-12.3); MONO # 0.7 10*3/uL (0.1-1.0); MONO % 6.2 % (3.0-9.0); NEUT # 8.2 10*3/uL (2.3-7.9); NEUT % 69.5 % (47.0-73.0); NUCLEATED RED BLOOD CELL 0.0 % (0.0-0.0); NUCLEATED RED BLOOD CELL 0.0 10*3/uL (0.0-0.0); PLATELET COUNT AUTOMATED 243 10*3/uL (130-400); RED CELL DISTRI WIDTH 17.1 % (0-14.5)
[2025-08-28 11:26] LABS: BUN 25 mg/dl (9-23); LDL CHOLESTEROL 77 mg/dL (9-159); SGPT/ALT 15 U/L (5-49)
== END | disposition home or self-care (01) ==
LOC: LAB 10:27 → EDSTATUS 10:28
PROVIDERS: ATTEND Nurse Practitioner Primary Care
DX: E11.42 Type 2 diabetes mellitus with diabetic polyneuropathy (principal); E78.2 Mixed hyperlipidemia; R53.83 Other fatigue; Z12.5 Encounter for screening for malignant neoplasm of prostate